=== PATIENT | male | born 1945 | race Hispanic/Latino ===

== ENCOUNTER 2018-06-20 15:30 | Inpatient (IN) | payer MEDICARE, OTHER ==
[~2018-06-20] VITALS: Ht 165.1 cm; Wt 82.2 kg
[2018-06-20 16:38] LABS: BASOPHILS % 0.4 % (0.0-1.0); EOSINOPHILS # (AUTO) 0.1 (0.0-0.4); EOSINOPHILS % 1.3 % (0.0-6.0); HEMATOCRIT 47.2 % (38.2-49.6); HEMOGLOBIN 16.6 g/dL (14.0-18.0); MEAN CORPUSCULAR HEMOGLOBIN 31.1 pg (28-32); MEAN CORPUSCULAR HGB CONC 35.2 g/dL (31-35); MEAN CORPUSCULAR VOLUME 88.4 fL (81-99); MONOCYTES # (AUTO) 0.5 (0.2-0.8); MONOCYTES % 7.6 % (4.4-11.3); NEUTROPHILS # (AUTO) 4.4 (2.1-6.9); NEUTROPHILS % 62.4 % (38.7-80.0); PLATELET COUNT 126 x10e3/uL (140-360); RED BLOOD COUNT 5.34 x10e6/uL (4.3-5.7); RED CELL DISTRIBUTION WIDTH 13.8 % (11.7-14.4)
[2018-06-20 16:49] LABS: INR 1.46; PROTHROMBIN TIME 16.7 seconds (11.9-14.5)
[2018-06-20 16:50] LABS: BILIRUBIN,URINE NEGATIVE (NEGATIVE); CLARITY,URINE SL CLOUDY (CLEAR); COLOR,URINE YELLOW (YELLOW); KETONES,URINE NEGATIVE (NEGATIVE); LEUKOCYTE ESTERASE ,URINE NEGATIVE (NEGATIVE); NITRITE,URINE NEGATIVE (NEGATIVE); PROTEIN,URINE DIPSTICK NEGATIVE (NEGATIVE); URINE UROBILINOGEN 0.2 mg/dL (0.2 - 1)
[2018-06-20 16:50] LABS: PARTIAL THROMBOPLASTIN TIME 27.4 seconds (23.8-35.5)
[2018-06-20 16:58] LABS: ALBUMIN 3.2 g/dL (3.5-5.0); ALBUMIN/GLOBULIN RATIO 0.8 (0.8-2.0); CALCIUM 9.3 mg/dL (8.4-10.2); CREATININE, SERUM 1.41 mg/dL (0.72-1.25)
[2018-06-20 16:59] LABS: BACTERIA,URINE FEW /HPF; EPITHELIAL CELLS,URINE FEW /LPF
[2018-06-20 17:05] LABS: CREATINE KINASE MB 4.1 ng/mL (0-5.0)
[2018-06-20] MEDS ORDERED: INSULIN REGULAR, HUMAN 100 UNIT/1 ML 3ML VIAL IV ONE (17:15)
[2018-06-20] MEDS ORDERED: SODIUM CHLORIDE 0.9% 1000ML 1,000 ML IV SCH (19:30)
[2018-06-20] MEDS ORDERED: SODIUM CHLORIDE 0.9% 1000ML 1,000 ML IV ONE (19:34)
[2018-06-20] MEDS ORDERED: HYDROCHLOROTHIA25 MG PO (20:42)
[2018-06-20] MEDS ORDERED: LOSARTAN POTAS100 MG PO (20:42)
[2018-06-20] MEDS ORDERED: BENAZEPRIL HCL10 MG PO (20:42)
[2018-06-20] MEDS ORDERED: AMLODIPINE BESYL5 MG PO (20:42)
[2018-06-20] MEDS ORDERED: COUMADIN3 MG PO (20:42)
[2018-06-20] MEDS ORDERED: ATORVASTATIN CA20 MG PO (20:42)
[2018-06-20] MEDS ORDERED: LEVEMIR100 UNIT/1 SQ (20:52)
[2018-06-20] MEDS ORDERED: PHYTONADIONE 10 MG/ML AMP PO ONE (21:15)
--- NOTE | 2018-06-20 21:17 | Diagnostic Imaging Report ---
PROCEDURE: A single AP view of the chest. COMPARISON: None. INDICATIONS: CHEST PAIN FINDINGS: Lines/tubes: None. Lungs: The lungs are well inflated. Minimal linear opacities projecting in the left costophrenic angle likely reflects subsegmental atelectasis. There is no evidence of consolidation or pulmonary edema. Pleura: There is no pleural effusion or pneumothorax. Heart and mediastinum: Mild prominence of the cardiac silhouette, which may be partly due to portable AP projection. Pulmonary vasculature is normal. Bones: No acute bony abnormality. IMPRESSION: 1. minimal left lower lung subsegmental atelectasis. No consolidation or effusion. 2. Mild prominence of the cardiac silhouette, which may be partly due to portable AP projection. Roscoe Taylor M.D. Dictated by: Roscoe Taylor M.D. on 06/20/2018 at 21:24 Electronically approved by: Roscoe Taylor M.D. on 06/20/2018 at 21:24
[2018-06-20] MEDS ORDERED: NOVOLOG100 UNITS1 SC (21:27)
--- NOTE | 2018-06-20 21:32 | Diagnostic Imaging Report ---
PROCEDURE: CT scan of the chest WITH intravenous contrast, using standard protocol. TECHNIQUE: The chest was scanned utilizing a multidetector helical scanner from the lung apex through the level of the adrenal glands after the IV administration of 100 cc of Isovue 370. Coronal and sagittal multiplanar reformations were obtained. COMPARISON: [facility], , CHEST SINGLE (PORTABLE), 06/20/2018, 16:45. INDICATIONS: SHORTNESS OF BREATH, LOWER EXTREMITY SWELLING FINDINGS: Limited exam due to suboptimal contrast bolus timing. Lines/tubes: None. Lungs and Airways: No filling defects are noted in the main, right or left pulmonary artery to their first subdivisions. Unable to assess segmental and subsegmental vessels secondary to poor contrast opacification due to suboptimal bolus timing. Mildly diffusely increased attenuation of the pulmonary parenchyma secondary to scan performed during partial expiration. No consolidation, or masses. No pulmonary nodules. Linear opacities in the lingula and bilateral posterior lower lobes, consistent with subsegmental atelectasis or scarring (series 3, image 73). Airways are clear, without endobronchial lesions. Pleura: The pleural spaces are clear. Heart and mediastinum: Enlarged left thyroid lobe on the basis of an approximately 4.0 x 3.1 cm heterogeneous nodule (series 2, image 19), which results in mild superior tracheal rightward deviation. Mild cardiomegaly. Atherosclerotic calcification of the coronary arteries and thoracic aorta. Aorta is non-aneurysmal. Main pulmonary artery is enlarged, measuring 3.4 cm. Lymph nodes: No mediastinal, hilar, or axillary adenopathy. Abdomen: Limited contrast-enhanced views of the upper abdomen show no abnormality within the visualized liver, spleen, pancreas, or kidneys. The adrenal glands are normal. Bones and soft tissues: No aggressive lytic lesions. Degenerative disc changes in the thoracic spine. Soft tissues are grossly unremarkable. IMPRESSION: 1. Limited exam due to suboptimal contrast bolus timing. No filling defects are noted in the main, right or left pulmonary arteries and their first subdivisions. Unable to assess segmental and subsegmental vessels. 2. Subsegmental atelectasis versus scarring in the lingula and bilateral posterior lower lobes. No consolidation, masses, or nodules. 3. Enlarged left thyroid lobe with large heterogeneous thyroid nodule. Recommend dedicated thyroid ultrasound on a nonemergent basis for further evaluation. 4. Myocardium mainly. 5. Enlarged main pulmonary artery suggesting pulmonary hypertension. Roscoe Taylor M.D. Dictated by: Roscoe Taylor M.D. on 06/20/2018 at 21:38 Electronically approved by: Roscoe Taylor M.D. on 06/20/2018 at 21:38
[2018-06-20] MEDS ORDERED: SODIUM CHLORIDE 0.9% 1000ML 500 ML IV SCH (22:00)
[2018-06-21] VITALS (8 sets, daily range): BP systolic 134–148; BP diastolic 74–90
[2018-06-21] MEDS ORDERED: FUROSEMIDE INJ 10 MG/ML 4 ML VIAL IV ONE (00:15)
[2018-06-21] MEDS ORDERED: IOPAMIDOL 370 MG/ML 200 ML INFUS..BTL INJ ONE (01:13)
[2018-06-21] MEDS ORDERED: SODIUM CHLORIDE 0.9% 50ML 50 ML ONE (01:13)
[2018-06-21] MEDS ORDERED: DEXTROSE 50% SYRINGE 50 ML IV PRN ×2 (01:15→09:15)
[2018-06-21] MEDS ORDERED: INSULIN LISPRO 100 UNIT/1 ML 3ML VIAL SQ ONE (02:45)
[2018-06-21 02:47] LABS: CREATINE KINASE MB 3.9 ng/mL (0-5.0)
[2018-06-21] MEDS ORDERED: INSULIN REGULAR, HUMAN 100 UNIT/1 ML 3ML VIAL SQ SCH (07:30)
[2018-06-21] MEDS: FUROSEMIDE INJ 10 MG/ML 4 ML VIAL IV SCH ×2 (08:47→16:31)
--- NOTE | 2018-06-21 10:13 | History and Physical ---
PRIMARY CARE PROVIDER: Kaylynn Chakraborty MD CHIEF COMPLAINT: Increasing shortness of breath and bilateral lower extremity edema. HISTORY: The patient is a 73-year-old male who came in with increasing shortness of breath and bilateral lower extremity edema and also associated with blood sugar in the 500s. The patient is only speaking Thai. His family is translating. The patient has increasing shortness of breath for the past few weeks. At baseline, he is on hydrochlorothiazide. He is also on warfarin for his atrial fibrillation, which is baseline. Heart rate on admission was 75. The patient has denied any chest pain. No abdominal pain. Increasing lower extremity swelling. PAST MEDICAL HISTORY: Atrial fibrillation with anticoagulant therapy. Dyslipidemia, hypertension, insulin-required diabetes type 2. PAST SURGICAL HISTORY: Noncontributory. MEDICATIONS: Norvasc, Lipitor, benazepril, hydrochlorothiazide, insulin NovoLog, insulin Levemir, losartan, warfarin. ALLERGIES: NO KNOWN ALLERGIES. SOCIAL HISTORY: Patient does not smoke or use alcohol. No recreational drugs. PHYSICAL EXAMINATION VITAL SIGNS: Temperature 98. Blood pressure 137/83. Pulse rate 60. Respirations 18. GENERAL: The patient is not in acute distress. He is awake. HEENT: Normocephalic, atraumatic, anicteric. No JVD. PULMONARY: Diminished breath sounds at bases with some crackles. CARDIOVASCULAR: Atrial fibrillation, rate controlled. No gross murmur. ABDOMEN: Soft, nontender, nondistended. EXTREMITIES: There is 1+ edema bilaterally. Pulses intact. NEUROLOGIC: No focal deficit. LABORATORY: Sodium is 130, potassium 4, chloride 94, bicarb 25, BUN 28, creatinine 1.4, glucose 557. WBC 7, hemoglobin 16.6, hematocrit 47, platelets 126. INR is 1.46. IMPRESSION 1. Acute, possibly chronic, diastolic dysfunction congestive heart failure associated with pulmonary hypertension as evident on CT scan of the chest that was done. There is no pulmonary embolism. No gross infiltrate, but he does have vascular congestion with pulmonary hypertension. 2. Atrial fibrillation on anticoagulant therapy chronically. 3. Dyspnea on exertion. 4. Uncontrolled diabetes, type 2, on insulin therapy. PLAN: Anticoagulant therapy. Will give the patient Lovenox in case the patient will need further cardiac workup. Consultation with Dr. Lio Barkley. Echocardiogram is done. Diurese the patient. Will give insulin sliding scale coverage and scheduled insulin and also obtain glycohemoglobin A1c. Will manage the patient's diabetes with diabetic education and diet control with ADA diet as well. The patient is admitted. ELAINA PAZ MD Job#: [id number]
[2018-06-21] MEDS: ENOXAPARIN SOD INJ 60 MG/0.6 ML SYR SC SCH ×2 (10:26→21:21)
[2018-06-21 10:36] LABS: CREATINE KINASE MB 3.2 ng/mL (0-5.0)
[2018-06-21] MEDS: INSULIN LISPRO 100 UNIT/1 ML 3ML VIAL SQ SCH ×5 (11:30→21:23)
--- NOTE | 2018-06-21 13:27 | Discharge Summary ---
NO DICTATION, LENGTH 21 SECONDS. NERISSA RAY MD Job#: [id number]
--- NOTE | 2018-06-21 13:59 | Consultation ---
DATE OF CONSULTATION: REQUESTING PHYSICIAN: Dr. Lewis. REASON FOR CONSULT: CHF. HISTORY OF PRESENTING ILLNESS: Mr. Rogers is a 73-year-old gentleman with past medical history as listed below, presented with complaints of shortness of breath. Patient apparently has been short of breath for the last 2 weeks or so. He gets short of breath at rest and on minimal exertion. He had some leg swelling. Denies any chest pain or palpitations. He reports that he went to [place] and got back last week. REVIEW OF SYMPTOMS CONSTITUTIONAL: Has some fatigue and weakness. HEENT: No headache, blurry vision, seizures, or syncope. CARDIOVASCULAR: No chest pain. Has dyspnea. Has leg edema. Has orthopnea. RESPIRATORY: No cough, fever, or expectoration. GI: No abdominal pain, vomiting, or diarrhea. : No dysuria, frequency, or incontinence. ALLERGIES: NO KNOWN DRUG ALLERGIES. MEDICATIONS: See list. PAST MEDICAL HISTORY: History of hypertension, history of diabetes mellitus, history of atrial fibrillation, history of hyperlipidemia. SOCIAL HISTORY: Does not smoke or drink. FAMILY HISTORY: Noncontributory. PHYSICAL EXAMINATION GENERAL: Moderately built, well nourished gentleman, alert and oriented, not in any obvious distress. VITAL SIGNS: Heart rate is 60, blood pressure 137/83, respiratory rate is 18. HEENT: Atraumatic. NECK: No JVD, bruits, thyromegaly, or lymphadenopathy. CARDIOVASCULAR: First and second heart sounds heard. No murmurs, rubs, or gallops appreciated. CHEST: Decreased air entry at the bases. No adventitious sounds appreciated. ABDOMEN: Soft, nontender. EXTREMITIES: Trace edema. LABORATORY DATA: Sodium is 130, potassium 4.0, chloride is 94, bicarb 25, BUN is 28, creatinine 1.4. Hemoglobin is 16.6, hematocrit 47.2, platelets 126, white count is 6.9. INR is 1.4. EKG shows atrial fibrillation at 50 beats per minute, leftward axis, normal intervals, borderline ST depressions V3 to V6. IMPRESSION 1. Congestive heart failure, [id number], diastolic. 2. Atrial fibrillation. 3. Hypertension. 4. Diabetes mellitus. 5. Hyperlipidemia. PLAN 1. IV diuresis. 2. Echocardiogram to assess LV function and valvular function. 3. Patient's heart rate is on the lower side to avoid any AV blocking agents. 4. His INR is on the lower side. He is on warfarin, can continue the same. 5. Continue with ARBs. 6. Further cardiac workup depending on clinical course. 7. I's and O's and fluid restriction. As always, I appreciate and thank you very much for this referral. Job#: [id number] VAS
[2018-06-21 19:45] LABS: CREATINE KINASE MB 2.8 ng/mL (0-5.0)
[2018-06-21] MEDS: ATORVASTATIN 20 MG TAB PO SCH (21:20)
[2018-06-21] MEDS: INSULIN DETEMIR 100 UNIT/ML PEN SQ SCH (21:22)
[2018-06-22 00:46] VITALS: BP 123/88
[2018-06-22 04:00] VITALS: BP 123/82
[2018-06-22 05:35] LABS: BASOPHILS # (AUTO) 0.1 (0.0-0.1); BASOPHILS % 0.6 % (0.0-1.0); EOSINOPHILS # (AUTO) 0.1 (0.0-0.4); EOSINOPHILS % 1.5 % (0.0-6.0); HEMATOCRIT 49.3 % (38.2-49.6); LYMPHOCYTES # (AUTO) 2.4 (1.0-3.2); LYMPHOCYTES % 27.6 % (18.0-39.1); MEAN CORPUSCULAR HEMOGLOBIN 30.7 pg (28-32); MEAN CORPUSCULAR HGB CONC 34.5 g/dL (31-35); MEAN CORPUSCULAR VOLUME 89.2 fL (81-99); MONOCYTES # (AUTO) 0.7 (0.2-0.8); MONOCYTES % 8.2 % (4.4-11.3); NEUTROPHILS # (AUTO) 5.4 (2.1-6.9); NEUTROPHILS % 61.4 % (38.7-80.0); PLATELET COUNT 131 x10e3/uL (140-360); RED BLOOD COUNT 5.53 x10e6/uL (4.3-5.7); RED CELL DISTRIBUTION WIDTH 13.9 % (11.7-14.4)
[2018-06-22 05:55] LABS: ALANINE AMINOTRANSFERASE 28 IU/L (0-55); ALBUMIN 2.9 g/dL (3.5-5.0); ALBUMIN/GLOBULIN RATIO 0.8 (0.8-2.0); ALKALINE PHOSPHATASE 76 IU/L (40-150); BLOOD UREA NITROGEN 25 mg/dL (7-26); BUN/CREATININE RATIO 21 (6-25); CALCIUM 9.3 mg/dL (8.4-10.2); CARBON DIOXIDE 29 mmol/L (22-29); CHLORIDE 99 mmol/L (98-107); CREATININE, SERUM 1.17 mg/dL (0.72-1.25); EST GLOMERULAR FILTRATION RATE > 60 ML/MIN (60-); GLUCOSE 105 mg/dL (74-118); SODIUM 139 mmol/L (136-145)
--- NOTE | 2018-06-22 06:28 | Diagnostic Imaging Report ---
CHEST SINGLE (PORTABLE), 06/22/2018 7:00 AM Technique: CHEST SINGLE (PORTABLE) Comparison: 06/20/2018. Clinical history: Congestive heart failure Findings: See Impression Impression: 1. Stable cardiomediastinal silhouette with mild cardiomegaly. 2. Unchanged lingular opacity, likely atelectasis. No edema or consolidation. 3. No effusion or pneumothorax. Signed by: Dr Kelly Baez MD on 06/22/2018 6:24 AM
[2018-06-22 07:57] LABS: INR 1.22; PROTHROMBIN TIME 14.5 seconds (11.9-14.5)
[2018-06-22 08:48] VITALS: BP 127/78
[2018-06-22] MEDS ORDERED: POTASSIUM CHLORIDE 10 MEQ TABCR PO ONE (09:00)
[2018-06-22] MEDS ORDERED: WARFARIN SOD 3 MG TAB PO SCH ×2 (09:00→17:00)
[2018-06-22] MEDS: FUROSEMIDE INJ 10 MG/ML 4 ML VIAL IV SCH ×2 (09:50→18:24)
[2018-06-22] MEDS: INSULIN LISPRO 100 UNIT/1 ML 3ML VIAL SQ SCH ×7 (09:50→21:00)
[2018-06-22] MEDS: ENOXAPARIN SOD INJ 60 MG/0.6 ML SYR SC SCH ×2 (09:50→21:10)
[2018-06-22 13:22] VITALS: BP 117/89
[2018-06-22] MEDS ORDERED: WARFARIN SOD 5 MG TAB PO SCH (17:00)
[2018-06-22 20:00] VITALS: BP 125/84
[2018-06-22] MEDS: ATORVASTATIN 20 MG TAB PO SCH (21:10)
[2018-06-22] MEDS: INSULIN DETEMIR 100 UNIT/ML PEN SQ SCH (21:10)
[2018-06-23] VITALS (7 sets, daily range): BP systolic 126–162; BP diastolic 76–93
[2018-06-23 06:09] LABS: INR 1.25; PROTHROMBIN TIME 14.8 seconds (11.9-14.5)
[2018-06-23 06:30] LABS: ANION GAP 13.6 mmol/L (8-16); BLOOD UREA NITROGEN 27 mg/dL (7-26); BUN/CREATININE RATIO 25 (6-25); CARBON DIOXIDE 27 mmol/L (22-29); CHLORIDE 102 mmol/L (98-107); CREATININE, SERUM 1.07 mg/dL (0.72-1.25); EST GLOMERULAR FILTRATION RATE > 60 ML/MIN (60-); GLUCOSE 210 mg/dL (74-118); POTASSIUM 3.6 mmol/L (3.5-5.1); SODIUM 139 mmol/L (136-145)
[2018-06-23] MEDS ORDERED: POTASSIUM CHLORIDE 10 MEQ TABCR PO ONE (07:00)
[2018-06-23] MEDS: FUROSEMIDE INJ 10 MG/ML 4 ML VIAL IV SCH ×2 (08:40→18:10)
[2018-06-23] MEDS: AMLODIPINE BESYLATE 5 MG TAB PO SCH (08:40)
[2018-06-23] MEDS: HYDROCHLOROTHIAZIDE 25 MG TAB PO SCH (08:40)
[2018-06-23] MEDS: INSULIN LISPRO 100 UNIT/1 ML 3ML VIAL SQ SCH ×7 (08:40→21:30)
[2018-06-23] MEDS ORDERED: WARFARIN SOD 3 MG TAB PO SCH ×2 (10:00→17:00)
[2018-06-23] MEDS ORDERED: WARFARIN SOD 3 MG TAB PO ONE (18:55)
[2018-06-23] MEDS: INSULIN DETEMIR 100 UNIT/ML PEN SQ SCH (21:30)
[2018-06-23] MEDS: ATORVASTATIN 20 MG TAB PO SCH (21:30)
[2018-06-24] VITALS (8 sets, daily range): BP systolic 107–153; BP diastolic 68–87
[2018-06-24 06:20] LABS: INR 1.18; PROTHROMBIN TIME 14.1 seconds (11.9-14.5)
[2018-06-24] MEDS: AMLODIPINE BESYLATE 5 MG TAB PO SCH (08:12)
[2018-06-24] MEDS: HYDROCHLOROTHIAZIDE 25 MG TAB PO SCH (08:12)
[2018-06-24] MEDS: FUROSEMIDE INJ 10 MG/ML 4 ML VIAL IV SCH ×2 (08:12→17:02)
[2018-06-24] MEDS: INSULIN LISPRO 100 UNIT/1 ML 3ML VIAL SQ SCH ×7 (08:14→21:30)
[2018-06-24] MEDS: ENOXAPARIN SOD INJ 60 MG/0.6 ML SYR SC SCH ×2 (09:34→21:29)
[2018-06-24] MEDS ORDERED: WARFARIN SOD 5 MG TAB PO NR (10:00)
[2018-06-24] MEDS: ATORVASTATIN 20 MG TAB PO SCH (21:29)
[2018-06-24] MEDS: INSULIN DETEMIR 100 UNIT/ML PEN SQ SCH (21:30)
[2018-06-25] VITALS (7 sets, daily range): BP systolic 111–131; BP diastolic 62–83
[2018-06-25 05:37] LABS: BASOPHILS # (AUTO) 0.1 (0.0-0.1); BASOPHILS % 0.7 % (0.0-1.0); EOSINOPHILS # (AUTO) 0.1 (0.0-0.4); EOSINOPHILS % 1.9 % (0.0-6.0); HEMATOCRIT 50.3 % (38.2-49.6); HEMOGLOBIN 16.9 g/dL (14.0-18.0); LYMPHOCYTES # (AUTO) 2.5 (1.0-3.2); LYMPHOCYTES % 34.4 % (18.0-39.1); MEAN CORPUSCULAR HEMOGLOBIN 30.2 pg (28-32); MEAN CORPUSCULAR HGB CONC 33.6 g/dL (31-35); MONOCYTES # (AUTO) 0.6 (0.2-0.8); MONOCYTES % 8.5 % (4.4-11.3); NEUTROPHILS # (AUTO) 3.9 (2.1-6.9); NEUTROPHILS % 54.2 % (38.7-80.0); PLATELET COUNT 133 x10e3/uL (140-360); RED BLOOD COUNT 5.59 x10e6/uL (4.3-5.7); RED CELL DISTRIBUTION WIDTH 13.9 % (11.7-14.4)
[2018-06-25 05:48] LABS: INR 1.6; PROTHROMBIN TIME 17.9 seconds (11.9-14.5)
[2018-06-25 05:56] LABS: ANION GAP 15.5 mmol/L (8-16); CALCIUM 9.7 mg/dL (8.4-10.2); CREATININE, SERUM 1.25 mg/dL (0.72-1.25); POTASSIUM 3.5 mmol/L (3.5-5.1)
[2018-06-25] MEDS: INSULIN LISPRO 100 UNIT/1 ML 3ML VIAL SQ SCH ×7 (07:30→21:45)
[2018-06-25] MEDS: FUROSEMIDE INJ 10 MG/ML 4 ML VIAL IV SCH (08:33)
[2018-06-25] MEDS: AMLODIPINE BESYLATE 5 MG TAB PO SCH (08:33)
[2018-06-25] MEDS: ENOXAPARIN SOD INJ 60 MG/0.6 ML SYR SC SCH ×2 (08:33→21:35)
[2018-06-25] MEDS ORDERED: POTASSIUM CHLORIDE 10 MEQ TABCR PO NR (11:45)
[2018-06-25] MEDS ORDERED: WARFARIN SOD 5 MG TAB PO NR (11:45)
[2018-06-25] MEDS: LOSARTAN POTASSIUM 100 MG TAB PO SCH (12:16)
[2018-06-25] MEDS: ATORVASTATIN 20 MG TAB PO SCH (21:35)
[2018-06-25] MEDS: INSULIN DETEMIR 100 UNIT/ML PEN SQ SCH (21:44)
[2018-06-26 01:00] VITALS: BP 132/80
[2018-06-26 04:50] VITALS: BP 150/85
[2018-06-26 06:06] LABS: INR 1.88; PROTHROMBIN TIME 20.3 seconds (11.9-14.5)
[2018-06-26 06:14] LABS: ANION GAP 14.5 mmol/L (8-16); CALCIUM 9.6 mg/dL (8.4-10.2); CREATININE, SERUM 1.19 mg/dL (0.72-1.25); POTASSIUM 3.5 mmol/L (3.5-5.1)
[2018-06-26] MEDS: LOSARTAN POTASSIUM 100 MG TAB PO SCH (07:55)
[2018-06-26] MEDS: AMLODIPINE BESYLATE 5 MG TAB PO SCH (07:56)
[2018-06-26] MEDS: ENOXAPARIN SOD INJ 60 MG/0.6 ML SYR SC SCH (07:56)
[2018-06-26] MEDS: INSULIN LISPRO 100 UNIT/1 ML 3ML VIAL SQ SCH ×2 (07:57→07:58)
[2018-06-26 08:00] VITALS: BP 119/65
[2018-06-26 08:29] VITALS: BP 119/65
[2018-06-26] MEDS ORDERED: POTASSIUM CHLORIDE 10 MEQ TABCR PO SCH (09:00)
[2018-06-26] MEDS ORDERED: FUROSEMIDE 40 MG TAB PO SCH (09:00)
[2018-06-26] MEDS ORDERED: LASIX40 MG PO (09:39)
[2018-06-26] MEDS ORDERED: WARFARIN SODIUM3 MG PO (09:40)
[2018-06-26] MEDS ORDERED: K DUR10 MEQ PO (09:42)
[2018-06-26] MEDS ORDERED: PROCARDIA XL30 MG (09:45)
--- NOTE | 2018-06-26 10:57 | Discharge Summary ---
PRIMARY CARE PHYSICIAN: Dr. Chakraborty DURABILITY ENGINEER: Dr. Lio Barkley FINAL DIAGNOSES: 1. [id number] diastolic dysfunction congestive heart failure. 2. Uncontrolled diabetes. Glycohemoglobin A1c of 14.2. 3. Anticoagulant therapy for baseline atrial fibrillation. SUMMARY: Patient is a 73-year-old male, came in with fluid overload, bilateral lower extremity edema, increasing shortness of breath. At baseline, he was taking hydrochlorothiazide. His blood sugar was very elevated in the 200 to 300. The patient was taking Levemir and NovoLog insulin at home, but not adequate. Patient also subtherapeutic on his INR, he was taking warfarin 3 mg once a day. Patient received IV Lasix diuresis and he did well. Echocardiogram showed ejection fraction approximately 55% to 60%. He had LVH and left atrial enlargement. He had trace aortic insufficiency, mitral regurgitation. The patient is stable now. He is going to go home today. His edema has resolved. His INR was 1.8. The patient will increase his medication. For his adjustment of medication, he was taking Levemir at 32 units, will increase that to 40 units daily. He will increase his NovoLog to 15 units before each meal. The patient will resume his Norvasc and Lipitor. He will discontinue his warfarin 3 mg, hydrochlorothiazide 25 mg, and benazepril 10 mg. He will continue with losartan and Norvasc. New prescription is warfarin 5 mg in the evening, Lasix 40 mg daily, potassium 20 mEq daily. The patient is stable and discharged home today. Will follow up with his family doctor within a week. He will need to have his blood thinner check, the latest will be Wednesday. Discussed with the patient's family. They expressed understanding. The patient is stable and discharged home today. Job#: [id number]
== END 2018-06-26 12:21 | disposition home or self-care (01) | DRG 293 ==
LOC: ER 15:30 → ERHOLD 06-21 01:53 → MED/SURG 06-21 02:50
PROVIDERS: ADMIT Internal Medicine; ATTEND Internal Medicine
DX: I11.0 Hypertensive heart disease with heart failure (principal); I50.33 Acute on chronic diastolic (congestive) heart failure; R79.1 Abnormal coagulation profile; I48.91 Unspecified atrial fibrillation; Z79.01 Long term (current) use of anticoagulants; E78.5 Hyperlipidemia, unspecified; E11.65 Type 2 diabetes mellitus with hyperglycemia; R60.0 Localized edema; Z79.4 Long term (current) use of insulin; Z86.718 Personal history of other venous thrombosis and embolism
CPT/HCPCS: 36415; 71045; 71260; 80048; 80053; 81001; 82550; 82553; 82948; 83036; 83880; 84443; 84484; 85025; 85610; 85730; 93005; 93306; 93971; 96372; 99284; J1650; J1940; J7030; Q9967

== ENCOUNTER 2018-11-08 11:28 | Inpatient (IN) | payer MEDICARE, OTHER ==
[~2018-11-08] VITALS: Ht 165.1 cm; Wt 85.4 kg
[~2018-11-08 11:28] MED LIST: AMLODIPINE BESYL5 MG PO; ATORVASTATIN CA20 MG PO; BENAZEPRIL HCL10 MG PO; COUMADIN3 MG PO; HYDROCHLOROTHIA25 MG PO; K DUR10 MEQ PO; LASIX40 MG PO; LEVEMIR100 UNIT/1 SQ; LOSARTAN POTAS100 MG PO; NOVOLOG100 UNITS1 SC; PROCARDIA XL30 MG; WARFARIN SODIUM3 MG PO
[2018-11-08] MEDS ORDERED: FUROSEMIDE INJ 10 MG/ML 4 ML VIAL IV ONE (13:00)
[2018-11-08 13:42] LABS: BASOPHILS # (AUTO) 0.1 (0.0-0.1); BASOPHILS % 0.6 % (0.0-1.0); EOSINOPHILS # (AUTO) 0.2 (0.0-0.4); EOSINOPHILS % 2.1 % (0.0-6.0); HEMATOCRIT 44.6 % (38.2-49.6); HEMOGLOBIN 15.1 g/dL (14.0-18.0); LYMPHOCYTES % 20.8 % (18.0-39.1); MEAN CORPUSCULAR HEMOGLOBIN 30.7 pg (28-32); MEAN CORPUSCULAR HGB CONC 33.9 g/dL (31-35); MEAN CORPUSCULAR VOLUME 90.7 fL (81-99); MONOCYTES # (AUTO) 0.5 (0.2-0.8); MONOCYTES % 5.3 % (4.4-11.3); NEUTROPHILS # (AUTO) 6.7 (2.1-6.9); NEUTROPHILS % 70.9 % (38.7-80.0); PLATELET COUNT 164 x10e3/uL (140-360); RED BLOOD COUNT 4.92 x10e6/uL (4.3-5.7); RED CELL DISTRIBUTION WIDTH 13.9 % (11.7-14.4)
[2018-11-08 13:45] LABS: CLARITY,URINE HAZY (CLEAR); COLOR,URINE YELLOW (YELLOW); LEUKOCYTE ESTERASE ,URINE NEGATIVE (NEGATIVE); NITRITE,URINE NEGATIVE (NEGATIVE)
[2018-11-08 13:46] LABS: BILIRUBIN,URINE NEGATIVE (NEGATIVE); KETONES,URINE NEGATIVE (NEGATIVE); PROTEIN,URINE DIPSTICK NEGATIVE (NEGATIVE); URINE UROBILINOGEN 0.2 mg/dL (0.2 - 1)
[2018-11-08 13:47] LABS: BACTERIA,URINE FEW /HPF; EPITHELIAL CELLS,URINE FEW /LPF; RBC,URINE 0-5 /HPF (0-5); WBC,URINE (MAN) 0-5 /HPF (0-5)
[2018-11-08 13:49] LABS: INR 1.38; PROTHROMBIN TIME 18.1 seconds (11.9-14.5)
[2018-11-08 13:57] LABS: ALBUMIN 2.9 g/dL (3.5-5.0); ALBUMIN/GLOBULIN RATIO 0.7 (0.8-2.0); ANION GAP 14.7 mmol/L (8-16); CHOL/HDL RATIO 2.9 (3.9-4.7); CREATININE, SERUM 1.49 mg/dL (0.72-1.25); POTASSIUM 4.7 mmol/L (3.5-5.1)
[2018-11-08] MEDS ORDERED: INSULIN REGULAR, HUMAN 100 UNIT/1 ML 3ML VIAL IV NR (14:00)
[2018-11-08 14:30] LABS: B-TYPE NATRIURETIC PEPTIDE2 224.7 pg/mL (0-100)
[2018-11-08] MEDS ORDERED: INSULIN REGULAR, HUMAN 100 UNIT/1 ML 3ML VIAL IV ONE (15:15)
[2018-11-08] MEDS ORDERED: SODIUM CHLORIDE FLUSH 10 ML SYR INJ PRN (16:00)
[2018-11-08] MEDS ORDERED: ONDANSETRON HCL INJ 2 MG/ML VIAL IV PRN (16:00)
[2018-11-08] MEDS ORDERED: DEXTROSE 50% SYRINGE 50 ML IV PRN ×2 (16:00→21:15)
[2018-11-08] MEDS: SODIUM CHLORIDE 0.9% 1000ML 1,000 ML IV SCH (16:16)
[2018-11-08] MEDS: VANCOMYCIN 1GM/NS 250 ML 250 ML IV SCH (16:16)
[2018-11-08] MEDS: HYDROCODONE/APAP 5MG-325MG TAB PO PRN (18:43)
[2018-11-08 19:47] VITALS: BP 124/70
--- NOTE | 2018-11-08 20:00 | NUR ---
RECEIVED PATIENT TO ROOM. AAOX3, BREATHING EVEN AND UNLABORED, RA. DENIES PAIN. TELE #[id number] A.FIB. IV TO R HAND 18G NS @70 ML/HR. PATIENT IS SYRIAN SPEAKING. SKIN IS PEELING ALL OVER. BLE RED, WARM, AND PEELING. RLE HAS TWO AREAS OF ESCHAR. FAMILY STATED "HE FELL IN MID OCTOBER, THOSE HAVEN'T HEALED SINCE". LLE HAS MULTIPLE SMALL WOUNDS. NO NEEDS VOICED AT THIS TIME. BED LOCKED AND IN LOWEST POSITION, CALL LIGHT WITHIN EASY REACH. BED ALARM ACTIVATED. WILL CONTINUE TO MONITOR THE PATIENT CLOSELY. SPOKE TO DR. NEWMAN. NEW ORDERS RECEIVED AND IMPLEMENTED.
[2018-11-08 20:32] VITALS: BP 124/70
[2018-11-08 20:40] VITALS: BP 124/70
[2018-11-08] MEDS: INSULIN DETEMIR 100 UNIT/ML PEN SQ SCH (21:45)
[2018-11-08] MEDS: INSULIN LISPRO 100 UNIT/1 ML 3ML VIAL SQ SCH (21:45)
[2018-11-09] VITALS (7 sets, daily range): BP systolic 113–141; BP diastolic 18–78
[2018-11-09 06:04] LABS: BASOPHILS # (AUTO) 0.1 (0.0-0.1); BASOPHILS % 0.6 % (0.0-1.0); EOSINOPHILS # (AUTO) 0.3 (0.0-0.4); EOSINOPHILS % 3.7 % (0.0-6.0); HEMATOCRIT 42.2 % (38.2-49.6); HEMOGLOBIN 14.3 g/dL (14.0-18.0); LYMPHOCYTES # (AUTO) 2.6 (1.0-3.2); LYMPHOCYTES % 30.3 % (18.0-39.1); MEAN CORPUSCULAR HEMOGLOBIN 30.5 pg (28-32); MEAN CORPUSCULAR HGB CONC 33.9 g/dL (31-35); MONOCYTES # (AUTO) 0.7 (0.2-0.8); MONOCYTES % 7.7 % (4.4-11.3); NEUTROPHILS % 57.5 % (38.7-80.0); PLATELET COUNT 176 x10e3/uL (140-360); RED BLOOD COUNT 4.69 x10e6/uL (4.3-5.7); RED CELL DISTRIBUTION WIDTH 14.1 % (11.7-14.4)
[2018-11-09 06:24] LABS: ALBUMIN 2.6 g/dL (3.5-5.0); ALBUMIN/GLOBULIN RATIO 0.8 (0.8-2.0); ANION GAP 12.7 mmol/L (8-16); CALCIUM 9.4 mg/dL (8.4-10.2); CREATININE, SERUM 1.2 mg/dL (0.72-1.25); MAGNESIUM 2.1 MG/DL (1.3-2.1); PHOSPHORUS 3.8 MG/DL (2.3-4.7); POTASSIUM 3.7 mmol/L (3.5-5.1)
[2018-11-09 06:27] LABS: INR 1.58; PROTHROMBIN TIME 20.2 seconds (11.9-14.5)
[2018-11-09] MEDS: SODIUM CHLORIDE 0.9% 1000ML 1,000 ML IV SCH ×2 (07:24→16:08)
--- NOTE | 2018-11-09 07:38 | History and Physical ---
HISTORY OF PRESENTING ILLNESS: This patient comes in with 4 weeks of pruritic lesions in the lower extremity and also generalized edema and scalding on the skin of the abdomen, perineal areas and also on the lower extremities. Patient has no history of taking any new medications except medicines that were given to him at [place] for the same reason. Patient's symptoms started about 4 weeks ago. No sudden change in environment and/or medications at the time, but patient went to a physician in [place] and was told it was from a mosquito bite. Patient was given loratadine and also hydroxyzine, but symptoms did not get any better, patient's blood sugar was running high, and the patient came here, was admitted for scalded skin syndrome. PAST MEDICAL HISTORY: History of hyperlipidemia, history of diabetes mellitus, history of hypertension, and history of DVTs and history of atrial fibrillation too. MEDICATIONS: He takes are atorvastatin 20 mg, Lasix 40 mg daily, insulin 15 units with NovoLog per each meal and Levemir 30 units in the morning and 40 units at nighttime, losartan 100 mg daily, nifedipine 30 mg daily, potassium chloride 10 mEq, and warfarin 5 mg at nighttime. SURGICAL HISTORY: Noncontributory. Did not have any surgeries. SOCIAL HISTORY: No ETOH, no IV drug abuse. FAMILY HISTORY: Positive for diabetes and hypertension. REVIEW OF SYSTEMS: Negative for chest pain. No shortness of breath. No nausea, vomiting, diarrhea. No constipation, no rectal bleeding. No hematochezia, no hematemesis. Positive for bilateral lower extremity swelling and tenderness. No orthopnea and/or no PND. No diplopia, no blurry vision. Patient is hard of hearing. PHYSICAL EXAMINATION: VITAL SIGNS: Temperature is 96.6, pulse of 57, respiration of 17, blood pressure is 114/73, pulse oximetry 97%. HEENT: Normocephalic, atraumatic. Hard of hearing. CVS: S1 and S2 regular. ABDOMEN: Nontender, nondistended. EXTREMITIES: No clubbing. Positive for bilateral lower extremity edema. SKIN AND INTEGUMENTARY SYSTEM: Positive for scalding of the skin of the perineal area and also of the groin area. Patient also has scalding in right and left upper extremity, also with lower extremities. Lower extremities with excoriations and also some pustular lesions. Patient also has bullous lesion, which is evacuated by itself, dried up skin at that place. LABORATORY VALUES: White count was 9.48, repeat today is 8.69; hemoglobin of 15.1, repeat is 14.3; hematocrit of 44.6; no left shift present. ESR was 20. Coags, 20.2 and INR is 1.58. Chemistries: Sodium 138, potassium is 4.7, chloride 102. BUN is 26; creatinine of 1.20, when he came in, it was 1.49. Glucose is 588 with current one of 191. A1c 14.6. BNP was 224.7. LDL was 44, HDL 49, triglycerides 247, and total cholesterol was 142. MICROBIOLOGY: Blood cultures are pending. Urine cultures are pending. ASSESSMENT: Hypersensitive reaction, questionable photodermatitis and/or secondary to generalized anasarca. PLAN: 1. To culture the wound in the lower extremity. Consult with Dr. Estrada has been done. Patient's sed rate is elevated, which is expected. 2. Acute kidney injury. Patient has been hydrated gently and will continue with hydration. 3. Atrial fibrillation with congestive heart failure. Will go ahead and do an echocardiogram. 4. DVT. Will continue with warfarin, up-titrate the Coumadin, put him on Lovenox 80 mg/kg b.i.d. Continue watching his cultures. Again consult with Dr. Estrada and possible consult with Dr. Richard. 5. Further recommendations per clinical course. Will continue to monitor the patient and will diurese the patient gently too. Job#: [id number]
[2018-11-09] MEDS: INSULIN LISPRO 100 UNIT/1 ML 3ML VIAL SQ SCH ×4 (08:30→21:39)
--- NOTE | 2018-11-09 08:55 | NUR ---
CASE MANAGEMENT INITIAL ASSESSMENT Fluorescent Lighting Model Maker to bedside to discuss plan of care with patient/family. CM/SW role and care transitions discussed. Anticipated discharge plan discussed along with duration of care. CM/SW discussed patients right to make decisions in care. CM/SW work hours given. Patient lives: PATIENT LIVES IN [address] [facility] [place] [address] WITH LIVE DUFF Admit/Transfer: ED POA/Emergency contact: LESLI HOWELL: [phone] Current/Previous Home Health: N/A PCP/Follow-up Care: DR. CHAKA SANABRIA Current/Previous DME: N/A Other Services: NONE AT THIS TIME Employment Status: RETIRED Areas of Concerns: NONE AT THIS TIME Referral Needs: NONE AT THIS TIME Education Needs: NONE IMM/ASIF given and signed (if applicable): IMM Goal for discharge: DISCHARGE HOME WITH NO NEEDS CM left business card at the bedside with contact information. Name and number was also written on the patients whiteboard. Patient verbalized understanding of discussion. CM will follow-up with ongoing discharge and transition of care needs.
[2018-11-09] MEDS ORDERED: GABAPENTIN 100 MG CAP PO SCH (09:00)
[2018-11-09] MEDS: VANCOMYCIN 1GM/NS 250 ML 250 ML IV SCH ×3 (09:00→21:15)
[2018-11-09] MEDS: ENOXAPARIN INJ 80 MG/0.8 ML SYR SC SCH ×2 (10:00→21:14)
--- NOTE | 2018-11-09 11:00 | NUR ---
NEW 20G TO L HAND, PT TOLERATED WELL
--- NOTE | 2018-11-09 11:17 | NUR ---
WOUND CULTURE SENT FROM LLE COLLECTED BY WOUND CARE NURSE
--- NOTE | 2018-11-09 11:35 | NUR ---
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 He has a history of DVT, HTN, AFib, DM type 2. He presented with redness and scaly skin throughout body and pruritic lesions and various bullae to bilateral lower extremities. Dr. Estrada on the case for Infectious diseases and patient is currently on IV ABX. Patient ambulates to bathroom and able to turn in bed. Spouse at bedside. Head to toe assessment performed today and noted the following wounds present on admission. VSS and Afebrile. Patient presents with crusted open bullae to left lower leg at wagner, an abrasion to right wagner from a fall at home 4 weeks ago. Redness to bilateral lower extremities and dry scaly skin throughout body. Patient has strong pedal pulses bilaterally. Education provided for daily routine hygiene/ baths to maintain skin integrity and wound care treatment plan reviewed. Patient and Spouse verbalized understanding. LABS: WBC8.69 Hgb14.3 HCT42.2 ESR20 [id number] Alb2.6 -- Trending Down Tot Protein5.9 -- Trending Down Micro: Wound Culture Performed to Left Wagner Bullae Today. RECOMMENDATION: 1. Daily Baths with Mild Soap and Water. 2. Bilateral Lower Extremities - Open Bullae - Apply Xeroform Gauze Single Layer Daily. Thank you for the consult. Addendum: 11/09/18 at 1150 by Awais Hough RN Amended: Links added.
--- NOTE | 2018-11-09 12:51 | NUR ---
SPOKE WITH MD NEWMAN, MADE AWARE OF BLOOD CULTURE BEING POSITIVE = GRAM + COCCI IN CLUSTERS, NO NEW ORDERS AT THIS TIME
--- NOTE | 2018-11-09 14:07 | NUR ---
Nutrition Screen Note RD Recommendation for Physician: -Continue 1800 ADA diet Plan of Care: RD following, monitoring for tolerance and adequacy Nutrition reason for involvement: Nutrition risk trigger- MST2 Primary Diagnose(s): Scalded skin syndrome PMH: CHF, HTN, DM2, HLD Ht: 65 in Wt: 180.3 lb BMI: 29.95 kg/m2 IBW: [address] Assessment: (11/09) 73 YOM admitted for staphylococcal scalded skin syndrome with blisters to bilateral lower legs, abdomen, and perineal areas. Pt's family at bedside translated for pt. Pt reports good appetite and po intake with no difficulties chewing or swallowing. Pt denies wt loss or GI distress. Noted wound care following, pt with blisters 2/2 to dx- no interventions at this time. Chart reviewed. Labs and meds reviewed, BG fluctuations noted- on lispro and levemir currently. Will continue to monitor. Current Diet: 1800 ADA Malnutrition Evaluation (11/09/18) The patient does not meet criteria for a specified degree of malnutrition at this time. Will re-evaluate at follow-up as appropriate. Diet Education Needs Assessment: Diet education not indicated. Nutrition Care Level: Low Signed: Kya Burgos RD, LD, [facility]
--- NOTE | 2018-11-09 17:05 | Consultation ---
DATE OF CONSULTATION: REASON FOR CONSULTATION: Cellulitis of bilateral lower extremities. This patient who is a very pleasant 73-year-old male, who has been having lesions of the lower extremities for more than 4 weeks with generalized edema. Patient was found to have redness and swelling of bilateral extremities. He came. The patient apparently was not taking any medications. He was in [place]. He took something from there without any improvement. Patient comes here. He was evaluated by his PCP and sent to the emergency room. The patient is currently laying in bed comfortably. PAST MEDICAL HISTORY: Hypercholesterolemia, diabetes mellitus, hypertension, DVT, atrial fibrillation. PAST SURGICAL HISTORY: Denies. ALLERGIES: NKA. SOCIAL HISTORY: There is no smoking, drug abuse or alcohol abuse. FAMILY HISTORY: Otherwise noncontributory. REVIEW OF SYSTEMS GENERAL: At the present time, he is laying in bed comfortably. HEENT: There is no visual changes or hearing changes. GI: There is no nausea. No vomiting. No diarrhea. CARDIAC: There is no arrhythmia. Patient was admitted and started on IV vancomycin. LABORATORY DATA: Reviewed. The blood cultures are still pending. One set is showing gram-positive cocci. White count is 9.48, hemoglobin 15.1. Sodium 130, potassium 3.7, creatinine of 1.2. PHYSICAL EXAMINATION GENERAL: He is currently alert and oriented. Does not seem to be in acute distress. VITALS: Stable. Currently afebrile. HEENT: Not icteric. NECK: Supple. CHEST: Clear. HEART: S1 and S2. No murmur. ABDOMEN: Soft. Bowel sounds are present. No tenderness. EXTREMITIES: He did have bilateral lower extremity edema. There is also erythema. IMPRESSION 1. Cellulitis of the patient's bilateral lower extremities. 2. History of deep venous thrombosis. Agree with vancomycin. I would recommend thigh-high elastic stockings. Follow vancomycin trough. Workup for DVT. Doppler was ordered. Recheck CBC. Recheck Chem panel. Obtain chest x-ray. Obtain ultrasound of the abdomen and the liver. Will follow. Job#: [id number] [place]
--- NOTE | 2018-11-09 17:17 | NUR ---
REPORT TO TUCKER ALDANA TAKING OVER CARE OF PT Addendum: 11/09/18 at 1746 by Shalini Chapa RN TUCKER SERRA
--- NOTE | 2018-11-09 17:46 | NUR ---
SPOKE WITH MD NEWMAN, CLARIFIED HOME MEDICATIONS, ORDERS NOTED
--- NOTE | 2018-11-09 17:50 | NUR ---
PT TRANSFERRED TO ROOM 200, NO CHANGE IN CONDITION, FAMILY AT SIDE
--- NOTE | 2018-11-09 19:10 | NUR ---
RECEIVED PATIENT IN BED. ALERT AND ORIENTED. IV FLUIDS ONGOING.
--- NOTE | 2018-11-09 19:23 | Diagnostic Imaging Report ---
EXAMINATION: CHEST 2 VIEWS INDICATION: ^sob ^[id number] ^[id number] COMPARISON: 06/22/2018. FINDINGS: TUBES and LINES: None. LUNGS: Mild bilateral pulmonary venous congestion. Bibasilar subsegmental atelectasis. PLEURA: No pleural effusion or pneumothorax. HEART AND MEDIASTINUM: The cardiomediastinal silhouette is mildly enlarged. BONES AND SOFT TISSUES: No acute osseous lesion. Soft tissues are unremarkable. UPPER ABDOMEN: No free air under the diaphragm. IMPRESSION: Mild bilateral pulmonary venous congestion.. Signed by: Dr. Misty Lopez M.D. on 11/09/2018 7:19 PM
[2018-11-09] MEDS ORDERED: WARFARIN SOD 3 MG TAB PO SCH (21:00)
[2018-11-09] MEDS: ATORVASTATIN 20 MG TAB PO SCH (21:14)
[2018-11-09] MEDS: GABAPENTIN 100 MG CAP PO SCH (21:14)
[2018-11-09] MEDS: INSULIN DETEMIR 100 UNIT/ML PEN SQ SCH (21:40)
[2018-11-10] VITALS (8 sets, daily range): BP systolic 121–160; BP diastolic 70–94
[2018-11-10] MEDS: HYDROCODONE/APAP 5MG-325MG TAB PO PRN ×2 (00:06→22:06)
--- NOTE | 2018-11-10 04:25 | NUR ---
Received call from telemetry that patient has a heart rate of 40bpm. Assessed patient heart rate auscultated at 52bpm. Asymptomatic, pt is alert and oriented.
[2018-11-10 04:51] LABS: BASOPHILS # (AUTO) 0.1 (0.0-0.1); BASOPHILS % 0.6 % (0.0-1.0); EOSINOPHILS # (AUTO) 0.3 (0.0-0.4); EOSINOPHILS % 3.2 % (0.0-6.0); HEMOGLOBIN 13.9 g/dL (14.0-18.0); LYMPHOCYTES # (AUTO) 2.6 (1.0-3.2); LYMPHOCYTES % 31.3 % (18.0-39.1); MEAN CORPUSCULAR HEMOGLOBIN 30.6 pg (28-32); MEAN CORPUSCULAR HGB CONC 33.1 g/dL (31-35); MEAN CORPUSCULAR VOLUME 92.5 fL (81-99); MONOCYTES # (AUTO) 0.6 (0.2-0.8); MONOCYTES % 6.8 % (4.4-11.3); NEUTROPHILS # (AUTO) 4.8 (2.1-6.9); NEUTROPHILS % 57.7 % (38.7-80.0); PLATELET COUNT 163 x10e3/uL (140-360); RED BLOOD COUNT 4.54 x10e6/uL (4.3-5.7); RED CELL DISTRIBUTION WIDTH 14.2 % (11.7-14.4)
[2018-11-10 05:02] LABS: INR 1.56
[2018-11-10 05:09] LABS: ANION GAP 10.8 mmol/L (8-16); BLOOD UREA NITROGEN 21 mg/dL (7-26); BUN/CREATININE RATIO 23 (6-25); CALCIUM 8.4 mg/dL (8.4-10.2); CARBON DIOXIDE 24 mmol/L (22-29); CHLORIDE 106 mmol/L (98-107); EST GLOMERULAR FILTRATION RATE > 60 ML/MIN (60-); GLUCOSE 154 mg/dL (74-118); POTASSIUM 3.8 mmol/L (3.5-5.1); SODIUM 137 mmol/L (136-145)
--- NOTE | 2018-11-10 07:20 | NUR ---
rEPORT GIVEN TO ONCOMING NURSE.
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
--- NOTE | 2018-11-10 08:09 | Diagnostic Imaging Report ---
EXAM: US ABDOMEN COMPLETE DATE: 11/10/2018 7:00 AM INDICATION: Pain COMPARISON: None TECHNIQUE: Transverse and longitudinal wilson scale and color doppler sonographic images of the upper abdomen were obtained. FINDINGS: LIVER 13.8 cm in the right midclavicular line. Normal echogenicity, normal contour, no masses. SPLEEN 7 cm in maximum diameter. Normal echogenicity, no masses. GALLBLADDER No stones, sludge, wall-thickening or pericholecystic fluid. Negative sonographic Layne's sign. BILE DUCTS No intra nor extra-hepatic biliary dilation. Common bile duct measures 0.3 cm PANCREAS: Visualized portions are normal. RIGHT KIDNEY: 10.8 cm Echogenicity: Normal Collecting System: No hydronephrosis Stones: None Cyst/Mass: None LEFT KIDNEY: 10.8 cm Echogenicity: Normal Collecting System: No hydronephrosis Stones: None Cyst/Mass: None VESSELS: Aorta: Nonaneurysmal Inferior Vena Cava: Patent Main Portal Vein: 0.7 cm, normal size with hepatopetal flow. FREE FLUID: None IMPRESSION: Unremarkable abdominal ultrasound. Signed by: Dr. Napoleon Rai M.D. on 11/10/2018 8:06 AM
[2018-11-10] MEDS: INSULIN LISPRO 100 UNIT/1 ML 3ML VIAL SQ SCH ×7 (09:00→21:00)
[2018-11-10] MEDS: FUROSEMIDE 40 MG TAB PO SCH (09:01)
[2018-11-10] MEDS: LOSARTAN POTASSIUM 100 MG TAB PO SCH (09:01)
[2018-11-10] MEDS: GABAPENTIN 100 MG CAP PO SCH ×2 (09:01→22:05)
[2018-11-10] MEDS: NIFEDIPINE CR 30 MG TAB PO SCH (09:01)
[2018-11-10] MEDS: POTASSIUM CHLORIDE 10MEQ EA PO SCH (09:01)
[2018-11-10] MEDS: ENOXAPARIN INJ 80 MG/0.8 ML SYR SC SCH ×2 (09:02→22:05)
[2018-11-10] MEDS: VANCOMYCIN 1GM/NS 250 ML 250 ML IV SCH ×2 (09:58→22:05)
[2018-11-10] MEDS: SODIUM CHLORIDE 0.9% 1000ML 1,000 ML IV SCH (10:00)
[2018-11-10] MEDS ORDERED: WARFARIN SOD 5 MG TAB PO SCH (17:00)
[2018-11-10] MEDS: INSULIN DETEMIR 100 UNIT/ML PEN SQ SCH (21:00)
[2018-11-10] MEDS: ATORVASTATIN 20 MG TAB PO SCH (22:05)
[2018-11-11] VITALS (7 sets, daily range): BP systolic 114–142; BP diastolic 63–89
[2018-11-11] MEDS: HYDROCODONE/APAP 5MG-325MG TAB PO PRN ×2 (03:20→21:15)
[2018-11-11] MEDS: SODIUM CHLORIDE 0.9% 1000ML 1,000 ML IV SCH ×3 (03:51→20:30)
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
[2018-11-11] MEDS: FUROSEMIDE 40 MG TAB PO SCH (08:26)
[2018-11-11] MEDS: INSULIN LISPRO 100 UNIT/1 ML 3ML VIAL SQ SCH ×8 (08:26→21:00)
[2018-11-11] MEDS: GABAPENTIN 100 MG CAP PO SCH ×2 (08:26→21:14)
[2018-11-11] MEDS: VANCOMYCIN 1GM/NS 250 ML 250 ML IV SCH ×2 (08:26→20:30)
[2018-11-11] MEDS: LOSARTAN POTASSIUM 100 MG TAB PO SCH (08:26)
[2018-11-11] MEDS: NIFEDIPINE CR 30 MG TAB PO SCH (08:26)
[2018-11-11] MEDS: ENOXAPARIN INJ 80 MG/0.8 ML SYR SC SCH ×2 (08:26→21:14)
[2018-11-11] MEDS: POTASSIUM CHLORIDE 10MEQ EA PO SCH (08:26)
[2018-11-11] MEDS ORDERED: WARFARIN SOD 5 MG TAB PO SCH (17:00)
[2018-11-11] MEDS: WARFARIN SOD 3 MG TAB PO SCH (17:17)
[2018-11-11] MEDS: WARFARIN SOD 2.5 MG TAB PO SCH (17:17)
[2018-11-11] MEDS: INSULIN DETEMIR 100 UNIT/ML PEN SQ SCH (21:00)
[2018-11-11] MEDS: ATORVASTATIN 20 MG TAB PO SCH (21:14)
[2018-11-12] VITALS (7 sets, daily range): BP systolic 98–164; BP diastolic 63–89
[2018-11-12] MEDS: HYDROCODONE/APAP 5MG-325MG TAB PO PRN ×3 (07:13→20:47)
[2018-11-12] MEDS: INSULIN LISPRO 100 UNIT/1 ML 3ML VIAL SQ SCH ×7 (07:45→20:29)
[2018-11-12] MEDS: NIFEDIPINE CR 30 MG TAB PO SCH (08:33)
[2018-11-12] MEDS: ENOXAPARIN INJ 80 MG/0.8 ML SYR SC SCH ×2 (08:33→20:47)
[2018-11-12] MEDS: LOSARTAN POTASSIUM 100 MG TAB PO SCH (08:33)
[2018-11-12] MEDS: GABAPENTIN 100 MG CAP PO SCH ×2 (08:33→20:47)
[2018-11-12] MEDS: POTASSIUM CHLORIDE 10MEQ EA PO SCH (08:33)
[2018-11-12] MEDS: FUROSEMIDE 40 MG TAB PO SCH (08:33)
[2018-11-12] MEDS: SODIUM CHLORIDE 0.9% 1000ML 1,000 ML IV SCH (11:11)
[2018-11-12] MEDS: WARFARIN SOD 2.5 MG TAB PO SCH (17:47)
[2018-11-12] MEDS: VANCOMYCIN 1GM/NS 250 ML 250 ML IV SCH (17:48)
[2018-11-12] MEDS: WARFARIN SOD 3 MG TAB PO SCH (17:48)
[2018-11-12 18:26] LABS: INR 1.63; PROTHROMBIN TIME 20.7 seconds (11.9-14.5)
[2018-11-12] MEDS: INSULIN DETEMIR 100 UNIT/ML PEN SQ SCH (20:29)
[2018-11-12] MEDS: ATORVASTATIN 20 MG TAB PO SCH (20:47)
[2018-11-13] VITALS (8 sets, daily range): BP systolic 124–157; BP diastolic 64–83
[2018-11-13] MEDS: SODIUM CHLORIDE 0.9% 1000ML 1,000 ML IV SCH ×2 (04:42→20:53)
[2018-11-13 04:50] LABS: INR 1.35; PROTHROMBIN TIME 17.8 seconds (11.9-14.5)
[2018-11-13] MEDS: HYDROCODONE/APAP 5MG-325MG TAB PO PRN ×3 (08:01→19:50)
[2018-11-13] MEDS: INSULIN LISPRO 100 UNIT/1 ML 3ML VIAL SQ SCH ×7 (08:02→21:00)
[2018-11-13] MEDS: NIFEDIPINE CR 30 MG TAB PO SCH (09:13)
[2018-11-13] MEDS: LOSARTAN POTASSIUM 100 MG TAB PO SCH (09:13)
[2018-11-13] MEDS: GABAPENTIN 100 MG CAP PO SCH ×2 (09:13→21:27)
[2018-11-13] MEDS: POTASSIUM CHLORIDE 10MEQ EA PO SCH (09:13)
[2018-11-13] MEDS: FUROSEMIDE 40 MG TAB PO SCH (09:13)
[2018-11-13] MEDS: ENOXAPARIN INJ 80 MG/0.8 ML SYR SC SCH ×2 (09:13→21:27)
[2018-11-13] MEDS: VANCOMYCIN 1GM/NS 250 ML 250 ML IV SCH (16:52)
[2018-11-13] MEDS: WARFARIN SOD 5 MG TAB PO SCH (16:52)
[2018-11-13] MEDS: WARFARIN SOD 2 MG TAB PO SCH (16:52)
[2018-11-13] MEDS ORDERED: WARFARIN SOD 5 MG TAB PO SCH (17:00)
--- NOTE | 2018-11-13 19:15 | NUR ---
Received patient awake with family members at the bedside, with ongoing IV fluids, generalized peeling noted on the LUE, abdomen and BLE. Call light within easy reached, advised to call for assistance, bed alarm on. Will continue to monitor
--- NOTE | 2018-11-13 20:10 | NUR ---
Wound care done to left wagner per MD order, patient tolerated the procedure well
[2018-11-13] MEDS: INSULIN DETEMIR 100 UNIT/ML PEN SQ SCH (21:00)
[2018-11-13] MEDS: ATORVASTATIN 20 MG TAB PO SCH (21:27)
[2018-11-14] VITALS (7 sets, daily range): BP systolic 121–144; BP diastolic 67–84
[2018-11-14 04:52] LABS: INR 1.47; PROTHROMBIN TIME 19.1 seconds (11.9-14.5)
[2018-11-14] MEDS: HYDROCODONE/APAP 5MG-325MG TAB PO PRN ×2 (05:42→14:44)
[2018-11-14] MEDS: LOSARTAN POTASSIUM 100 MG TAB PO SCH (08:30)
[2018-11-14] MEDS: ENOXAPARIN INJ 80 MG/0.8 ML SYR SC SCH ×2 (08:31→21:44)
[2018-11-14] MEDS: POTASSIUM CHLORIDE 10MEQ EA PO SCH (08:31)
[2018-11-14] MEDS: GABAPENTIN 100 MG CAP PO SCH ×2 (08:31→21:44)
[2018-11-14] MEDS: FUROSEMIDE 40 MG TAB PO SCH (08:31)
[2018-11-14] MEDS: INSULIN LISPRO 100 UNIT/1 ML 3ML VIAL SQ SCH ×7 (08:34→22:59)
[2018-11-14] MEDS: NIFEDIPINE CR 30 MG TAB PO SCH (09:00)
--- NOTE | 2018-11-14 09:23 | NUR ---
ALIDA CALLED DR. NEWMAN REGARDING PATIENT PLAN OF CARE. DR. NEWMAN STATES HE WANTS TO SEE PATIENT PRIOR TO MAKING DECISION FOR DISCHARGE PLAN. CM ASKED MD FOR PT EVAL FOR PRELIMINARY DISCHARGE RECOMMENDATIONS. MD VERBALLY AGREED TO ORDERING PT EVALUATION. CM PLACED ORDER AND CALLED PHYSICAL THERAPY TO SEE PATIENT.
[2018-11-14] MEDS: SODIUM CHLORIDE 0.9% 1000ML 1,000 ML IV SCH (13:00)
[2018-11-14] MEDS: VANCOMYCIN 1GM/NS 250 ML 250 ML IV SCH (17:13)
[2018-11-14] MEDS: WARFARIN SOD 5 MG TAB PO SCH (17:13)
[2018-11-14] MEDS: WARFARIN SOD 2 MG TAB PO SCH (17:14)
--- NOTE | 2018-11-14 19:00 | NUR ---
Completed bedside rounds with morning nurse. Pt alert to name, lying in bed 60 degrees. Family at bedside. No distress noted.
[2018-11-14] MEDS: INSULIN DETEMIR 100 UNIT/ML PEN SQ SCH (21:00)
[2018-11-14] MEDS: ATORVASTATIN 20 MG TAB PO SCH (21:44)
--- NOTE | 2018-11-14 22:12 | Progress Note ---
DATE: SUBJECTIVE: This 73-year-old man comes in with cellulitis of lower extremity and also scarring of the skin. The patient is currently doing okay, getting local wound care and afebrile. Complains of pain in the lower extremities. Medications right now are warfarin 5 mg and 2 mg; vancomycin daily; insulin 15 units, Lispro and Humalog; and also getting hydrocodone for pain. The patient is also on gabapentin, Lovenox q.12 h., atorvastatin 20 mg and also Levemir 40 units. OBJECTIVE VITAL SIGNS: Temperature is 96.7, pulse is 51, respirations of 18, blood pressure is 137/71. HEENT: Normocephalic, atraumatic. Pupils are reactive to light and accommodation. CVS: S1 and S2, irregular. ABDOMEN: Nontender, nondistended. EXTREMITIES: No clubbing, no cyanosis. Positive for edema. Positive for excoriation and erythematous ulcer in the left lower extremity. Positive for scarring of the skin which is better in perineal area. LABORATORY VALUES: White count has not been done. It was of back on 11/10, was 8.25 and hemoglobin was 13.9 and 42.0 hematocrit. Chemistries were also not done. Vancomycin trough done on the was 9.0. His coags have been 1.479 today. MICROBIOLOGY: The patient grew Enterococcus faecalis, Enterococcus cloacae and Proteus mirabilis in the wound culture. The patient is sensitive to vancomycin for both. The patient is currently on vancomycin. ASSESSMENT 1. Cellulitis of the lower extremities: Plan is to continue with vancomycin, although the culture has been sensitive to Levaquin. We will discuss with ID tomorrow whether the patient can be discharged home on Levaquin. 2. Bacteremia: Continue with monitoring the patient. So far, the blood cultures have been negative. 3. Acute on chronic systolic heart failure: Continue diuresis. 4. Atrial fibrillation: Increase warfarin today and follow through his INR. The patient needs IV antibiotic or p.o. antibiotics on an outpatient basis. Will discuss with ID on it. Repeat his labs tomorrow. Job#: [id number] YVES
[2018-11-15] VITALS: BP 164/78
[2018-11-15 04:00] VITALS: BP 156/88
[2018-11-15 04:48] LABS: BASOPHILS # (AUTO) 0.1 (0.0-0.1); BASOPHILS % 0.8 % (0.0-1.0); EOSINOPHILS # (AUTO) 0.3 (0.0-0.4); EOSINOPHILS % 3.7 % (0.0-6.0); HEMATOCRIT 39.3 % (38.2-49.6); HEMOGLOBIN 12.6 g/dL (14.0-18.0); LYMPHOCYTES # (AUTO) 2.4 (1.0-3.2); LYMPHOCYTES % 31.1 % (18.0-39.1); MEAN CORPUSCULAR HGB CONC 32.1 g/dL (31-35); MEAN CORPUSCULAR VOLUME 93.6 fL (81-99); MONOCYTES # (AUTO) 0.8 (0.2-0.8); MONOCYTES % 10.9 % (4.4-11.3); NEUTROPHILS % 53.2 % (38.7-80.0); PLATELET COUNT 150 x10e3/uL (140-360); RED CELL DISTRIBUTION WIDTH 14.8 % (11.7-14.4)
[2018-11-15 05:11] LABS: ANION GAP 11.7 mmol/L (8-16); BLOOD UREA NITROGEN 15 mg/dL (7-26); BUN/CREATININE RATIO 19 (6-25); CALCIUM 8.2 mg/dL (8.4-10.2); CARBON DIOXIDE 23 mmol/L (22-29); CHLORIDE 108 mmol/L (98-107); CREATININE, SERUM 0.81 mg/dL (0.72-1.25); EST GLOMERULAR FILTRATION RATE > 60 ML/MIN (60-); GLUCOSE 75 mg/dL (74-118); POTASSIUM 3.7 mmol/L (3.5-5.1); SODIUM 139 mmol/L (136-145)
[2018-11-15] MEDS: SODIUM CHLORIDE 0.9% 1000ML 1,000 ML IV SCH (05:19)
[2018-11-15] MEDS: HYDROCODONE/APAP 5MG-325MG TAB PO PRN ×3 (05:19→17:24)
--- NOTE | 2018-11-15 07:40 | Progress Note ---
DATE: SUBJECTIVE: The patient is here for cellulitis of the lower extremity and also history of atrial fibrillation. The patient is currently afebrile, no complaints. The patient's medications are Atorvastatin 20 mg, Lovenox for bridging, Lasix 40 mg. The patient is also on gabapentin, hydrocodone for pain control, detemir Levemir, and nifedipine. The patient is also on vancomycin and warfarin. OBJECTIVE VITAL SIGNS: Temperature is 96.8, pulse 53, respirations of 18, blood pressure is 156/88, and pulse oximeter is 95%. HEENT: Normocephalic, atraumatic. Pupils are reactive to light and accommodation. CVS: S1 and S2, irregular. ABDOMEN: Nontender, nondistended. EXTREMITIES: Positive for increased erythema. Positive for ulcers in the left lower extremity. It is bandaged. Skin in the perineal area is better and peeling and looks healthier. LABORATORY VALUES: Today's white count is 7.59, hemoglobin 12.6, hematocrit 39.3. Sed rate 20.19. Chemistries: Sodium 139, potassium 3.7, chloride 108, BUN 15, creatinine 0.81, glucose 75. Toxicology: Creatinine trough was 9 yesterday. Urine has been negative so far. MICROBIOLOGY: Enterococcus and Gram stain on the wound culture and Enterobacter cloacae and Proteus mirabilis. Blood culture showed coagulase-negative staphylococcus, possibly skin contaminant. Urine culture was negative. ASSESSMENT 1. Bacteremia initially. 2. Cellulitis of bilateral lower extremities sensitive to floxins. The plan is to continue with the vancomycin. ID consult is on board. We will discuss with ID if the patient can be discharged home on Levaquin p.o. and/or need a PICC line for continuous vancomycin. Further recommendations per the clinical course. 3. The patient also has atrial fibrillation. Anticoagulation is on board. The patient's laboratory coags today were 19.1 and 1.47. We will go ahead and increase his warfarin today. Further recommendations per the clinical course. The patient is to be discharged and to be followed up by the primary care physician and also to monitor his INR Job#: [id number]
[2018-11-15 08:00] VITALS: BP 149/76
[2018-11-15] MEDS: INSULIN LISPRO 100 UNIT/1 ML 3ML VIAL SQ SCH ×6 (08:00→16:30)
[2018-11-15 08:56] VITALS: BP 149/76
[2018-11-15] MEDS: NIFEDIPINE CR 30 MG TAB PO SCH (09:00)
[2018-11-15] MEDS: LOSARTAN POTASSIUM 100 MG TAB PO SCH (09:00)
[2018-11-15] MEDS: FUROSEMIDE 40 MG TAB PO SCH (09:00)
[2018-11-15] MEDS: POTASSIUM CHLORIDE 10MEQ EA PO SCH (09:00)
[2018-11-15] MEDS: GABAPENTIN 100 MG CAP PO SCH (09:00)
[2018-11-15] MEDS: ENOXAPARIN INJ 80 MG/0.8 ML SYR SC SCH (09:00)
[2018-11-15 12:07] VITALS: BP 146/78
[2018-11-15 16:00] VITALS: BP 139/79
[2018-11-15] MEDS ORDERED: DOXYCYCLINE HY100 MG PO (17:02)
[2018-11-15] MEDS: WARFARIN SOD 5 MG TAB PO SCH (17:28)
[2018-11-15] MEDS: WARFARIN SOD 2 MG TAB PO SCH (17:28)
[2018-11-15] MEDS: VANCOMYCIN 1GM/NS 250 ML 250 ML IV SCH (17:28)
== END 2018-11-15 20:34 | disposition home health service (06) | DRG 602 ==
LOC: ER 11:28 → ERHOLD 15:56 → MED/SURG 19:50 → MED/SURG2 11-09 17:53
PROVIDERS: ADMIT Family Medicine; ATTEND Family Medicine
DX: L03.115 Cellulitis of right lower limb (principal); I50.43 Acute on chronic combined systolic (congestive) and diastolic (congestive) heart failure; N17.9 Acute kidney failure, unspecified; I48.2 Chronic atrial fibrillation; L03.116 Cellulitis of left lower limb; Z79.01 Long term (current) use of anticoagulants; Z86.718 Personal history of other venous thrombosis and embolism; I11.0 Hypertensive heart disease with heart failure; E11.9 Type 2 diabetes mellitus without complications; G89.29 Other chronic pain; E11.40 Type 2 diabetes mellitus with diabetic neuropathy, unspecified; Z79.4 Long term (current) use of insulin; B96.4 Proteus (mirabilis) (morganii) as the cause of diseases classified elsewhere; B95.2 Enterococcus as the cause of diseases classified elsewhere; B96.89 Other specified bacterial agents as the cause of diseases classified elsewhere
CPT/HCPCS: 36415; 71046; 76700; 80048; 80053; 80061; 80202; 81001; 82948; 83036; 83735; 83880; 84100; 84484; 85025; 85610; 85651; 85730; 87040; 87071; 87086; 87186; 87205; 93306; 93970; 96361; 96372; 99285; J1650; J1940; J3370; J7030

== ENCOUNTER 2019-11-30 18:26 | Emergency (ER) | payer MEDICARE, OTHER ==
[~2019-11-30] VITALS: Ht 165.1 cm; Wt 84.4 kg
[~2019-11-30 18:26] MED LIST changes: +DOXYCYCLINE HY100 MG PO
[2019-11-30] MEDS ORDERED: ONDANSETRON HCL INJ 2MG/ML 2ML 2 MG/ML VIAL IV STA (18:52)
[2019-11-30] MEDS ORDERED: SODIUM CHLORIDE 0.9% 1000ML 1,000 ML IV STA (18:52)
[2019-11-30] MEDS ORDERED: CEFTRIAXONE SOD 1 GM/NS 50 ML 50 ML IV STA (18:52)
--- NOTE | 2019-11-30 19:21 | NUR ---
PT GAVE WATER IN URINE CUP, COLD TOO TOUCH. CLEAR. DISCARDED.
--- NOTE | 2019-11-30 19:59 | Diagnostic Imaging Report ---
Examination: Single AP view of the chest. COMPARISON: None. INDICATION: nausea, vomiting DISCUSSION: Lines/tubes: None. Lungs: The lungs are well inflated and clear. No pneumonia or pulmonary edema. Pleura: No pleural effusion or pneumothorax. Heart and mediastinum: The heart and the mediastinum are unremarkable. Bones and soft tissues: No acute bony abnormalities. IMPRESSION: 1. No acute cardiopulmonary abnormalities. Signed by: Dr. Hammad Cano M.D. on 11/30/2019 7:56 PM
[2019-11-30 21:17] LABS: BASOPHILS % 0.1 % (0.0-1.0); EOSINOPHILS # (AUTO) 0.1 (0.0-0.4); EOSINOPHILS % 0.3 % (0.0-6.0); HEMATOCRIT 42.4 % (38.2-49.6); HEMOGLOBIN 14.2 g/dL (14.0-18.0); LYMPHOCYTES # (AUTO) 1.6 (1.0-3.2); LYMPHOCYTES % 7.6 % (18.0-39.1); MEAN CORPUSCULAR HGB CONC 33.5 g/dL (31-35); MEAN CORPUSCULAR VOLUME 89.5 fL (81-99); MONOCYTES # (AUTO) 1.1 (0.2-0.8); MONOCYTES % 4.9 % (4.4-11.3); NEUTROPHILS # (AUTO) 18.5 (2.1-6.9); NEUTROPHILS % 85.7 % (38.7-80.0); PLATELET COUNT 130 x10e3/uL (140-360); RED BLOOD COUNT 4.74 x10e6/uL (4.3-5.7); RED CELL DISTRIBUTION WIDTH 13.1 % (11.7-14.4)
[2019-11-30 21:24] LABS: INR 3.15; PROTHROMBIN TIME 33.8 seconds (11.9-14.5)
[2019-11-30 21:25] LABS: PARTIAL THROMBOPLASTIN TIME 54.7 seconds (23.8-35.5)
[2019-11-30 21:32] LABS: ALBUMIN 3.2 g/dL (3.5-5.0); ALBUMIN/GLOBULIN RATIO 0.9 (0.8-2.0); ANION GAP 17.5 mmol/L (8-16); CREATININE, SERUM 1.58 mg/dL (0.72-1.25); POTASSIUM 4.5 mmol/L (3.5-5.1)
[2019-11-30 21:38] LABS: CREATINE KINASE MB 1.3 ng/mL (0-5.0)
[2019-11-30 21:46] LABS: B-TYPE NATRIURETIC PEPTIDE2 295.2 pg/mL (0-100)
[2019-11-30] MEDS ORDERED: INSULIN REGULAR, HUMAN 100 UNIT/1 ML 3ML VIAL IV ONE (22:15)
--- NOTE | 2019-11-30 23:46 | Diagnostic Imaging Report ---
CT Abdomen And Pelvis with Intravenous Contrast INDICATION: Nausea, vomiting, fever, hematuria ^abd pain ^[id number] ^3 TECHNIQUE: Thin collimation axial images obtained from the diaphragm to the level of the pubic symphysis following the uneventful administration of 100 cc of low osmolar, nonionic intravenous contrast. Dose reduction techniques used: Automated exposure control, adjustment of the mAs and/or kVp according to patient size, standardized low-dose protocol, and/or iterative reconstruction technique. RADIATION DOSE: Total DLP: 517.27 mGy*cm Estimated effective dose: (DLP x 0.015 x size factor) mSv CTDIvol has been reviewed. It is below the limits set by the Radiation Protocol Committee (RPC). COMPARISON: CT abdomen/pelvis 10/27/2019. ABDOMEN FINDINGS: Lung Bases: Pleural effusions have resolved. A small focus of atelectasis or scarring in the anterior basal segment of the left lower lobe. The heart is mildly enlarged. There are calcifications in the LAD. Liver: No evidence of mass. Gallbladder: Present and appears normal. No biliary ductal dilatation. Pancreas: Mild fatty atrophy. No mass or ductal dilatation. Spleen: Normal in size. No evidence of mass.. Adrenal Glands: No evidence for mass. Kidneys: Right: Normal enhancement. No soft tissue mass. No hydronephrosis. Left: Normal enhancement. No soft tissue mass. No hydronephrosis. Lymph Nodes: No lymphadenopathy. Aorta: Normal in diameter. There are calcifications of the renal artery origins and calcifications throughout the arterial structures of the abdomen and pelvis. PELVIS FINDINGS: Bowel: Stomach: Normal. Small Bowel: Normal in caliber with normal wall thickness. Large Bowel: Scattered diverticula without associated inflammation. No focal mural thickening or pericolonic inflammation. Appendix: Normal. Bladder: Diffuse circumferential mural thickening. Ureters: No ureteral dilatation. Prostate: Enlarged. Peritoneum/retroperitoneum: No free fluid or fluid collection.. Bones: Degenerative changes of the spine. The lucent lesion in the right iliac wing is stable. Soft tissues: Unremarkable. IMPRESSION: 1. Circumferential bladder wall thickening may be secondary to bladder outlet obstruction from prostate hypertrophy or cystitis. Please correlate with urinalysis/urine culture. 2. No obstructive uropathy. No CT evidence of pyelonephritis. 3. No evidence for bowel obstruction or inflammation. Signed by: Dr. Frank Cordova MD on 11/30/2019 11:43 PM
[2019-12-01 00:05] LABS: CLARITY,URINE CLOUDY (CLEAR); COLOR,URINE AMBER (YELLOW); NITRITE,URINE NEGATIVE (NEGATIVE); PROTEIN,URINE DIPSTICK 1+ (NEGATIVE)
[2019-12-01 00:06] LABS: BACTERIA,URINE MANY /HPF; BILIRUBIN,URINE SMALL (NEGATIVE); EPITHELIAL CELLS,URINE FEW /LPF; KETONES,URINE TRACE (NEGATIVE); LEUKOCYTE ESTERASE ,URINE 2+ (NEGATIVE); RBC,URINE 21-50 /HPF (0-5); RENAL EPITHELIAL CELLS,URINE FEW; TRANSITIONAL EPI CELLS,URINE FEW; URINE UROBILINOGEN 1 mg/dL (0.2 - 1); WBC,URINE (MAN) >50 /HPF (0-5)
[2019-12-01] MEDS ORDERED: INSULIN GLARGINE 100 UNITS/ML VIAL ONE (02:13)
[2019-12-01] MEDS ORDERED: INSULIN GLARGINE 100 UNITS/ML VIAL SQ ONE (03:15)
[2019-12-01] MEDS ORDERED: SODIUM CHLORIDE 0.9% 50ML 50 ML ONE (03:22)
[2019-12-01] MEDS ORDERED: IOPAMIDOL 370 MG/ML 200 ML INFUS..BTL INJ ONE (03:22)
[2019-12-01 05:29] LABS: BASOPHILS % 0.2 % (0.0-1.0); EOSINOPHILS % 0.2 % (0.0-6.0); HEMATOCRIT 36.6 % (38.2-49.6); HEMOGLOBIN 12.4 g/dL (14.0-18.0); LYMPHOCYTES # (AUTO) 2.1 (1.0-3.2); LYMPHOCYTES % 11.2 % (18.0-39.1); MEAN CORPUSCULAR HEMOGLOBIN 30.3 pg (28-32); MEAN CORPUSCULAR HGB CONC 33.9 g/dL (31-35); MEAN CORPUSCULAR VOLUME 89.5 fL (81-99); MONOCYTES # (AUTO) 1.5 (0.2-0.8); NEUTROPHILS # (AUTO) 15.1 (2.1-6.9); NEUTROPHILS % 79.9 % (38.7-80.0); PLATELET COUNT 116 x10e3/uL (140-360); RED BLOOD COUNT 4.09 x10e6/uL (4.3-5.7)
[2019-12-01 05:47] LABS: ALBUMIN 2.8 g/dL (3.5-5.0); ALBUMIN/GLOBULIN RATIO 0.8 (0.8-2.0); ANION GAP 13.8 mmol/L (8-16); CALCIUM 8.7 mg/dL (8.4-10.2); CREATININE, SERUM 1.27 mg/dL (0.72-1.25); POTASSIUM 3.8 mmol/L (3.5-5.1)
[2019-12-01] MEDS ORDERED: BACTRIM DS TAB1 EACH PO (07:04)
[2019-12-01] MEDS ORDERED: KEFLEX500 MG PO (07:04)
[2019-12-01 07:27] VITALS: BP 123/65
[2019-12-01] MEDS ORDERED: CEFTRIAXONE SOD 1 GM/NS 50 ML 50 ML IV ONE (07:30)
== END 2019-12-01 07:39 | disposition home or self-care (01) ==
LOC: ER 18:26
DX: R30.0 Dysuria (principal); R31.9 Hematuria, unspecified; R11.2 Nausea with vomiting, unspecified; R10.9 Unspecified abdominal pain; I10 Essential (primary) hypertension; E11.9 Type 2 diabetes mellitus without complications; E78.5 Hyperlipidemia, unspecified; Z86.711 Personal history of pulmonary embolism
CPT/HCPCS: 36415; 71045; 74177; 80053; 81001; 82550; 82553; 82948; 83605; 83880; 84484; 85025; 85610; 85730; 87040; 87086; 93005; 99284; J0696 ×2; J1815; J1817; J2405; J7030; Q9967

== ENCOUNTER 2020-05-06 13:55 | Inpatient (IN) | payer MEDICARE, OTHER ==
[~2020-05-06] VITALS: Ht 160 cm; Wt 84.4 kg
[~2020-05-06 13:55] MED LIST changes: +BACTRIM DS TAB1 EACH PO; +KEFLEX500 MG PO
[2020-05-06] MEDS ORDERED: CEFEPIME 1GM/NS 0.9% 50 ML 50 ML IV STA (15:12)
[2020-05-06] MEDS ORDERED: VANCOMYCIN 1GM/NS 250 ML 250 ML IV STA (15:28)
--- NOTE | 2020-05-06 15:31 | Emergency Department Note ---
History of Present Illnes History of Present Illness Chief Complaint: Extremity Trauma/Pain History of Present Illness This is a 75 year old male arrived to the ED with complaints right great toe infection, pt is a diabetic who states he stubbed his toe last week. Chief Complaint Comment Pt arrived with c/o Right great toe infection. Pt states he stubbed his toe approx 3 days ago and now swollen and redness noted with yellow drainage. Sent to the ER by his PCP for further eval. Historian: Patient Arrival Mode: Car Onset (how long ago): day(s) Radiation: Reports non-radiation Severity: mild Onset quality: sudden Progression: worsening Chronicity: new Relieving factors: none Past Medical/Family History Physician Review I have reviewed the patient's past medical and family history. Any updates have been documented here. Past Medical History Recent Fever: No Clinical Suspicion of Infectio: No New/Unexplained Change in Ment: No Past Medical History: Hypertension, Diabetes, A-Fib, Hyperlipedemia, DVT/PE, Chronic Kidney Disease Other Medical History: Diabetic neuropathy Past Surgical History: None Social History Smoking Cessation: Former smoker Alcohol Use: None Any Illegal Drug Use: No Physically hurt or threatened: No Other Last Tetanus: UTD Any Pre-Existing Lines (PICC,: No Review of Systems Review of Systems Constitutional: Reports no symptoms EENTM: Reports no symptoms Cardiovascular: Reports no symptoms Respiratory: Reports no symptoms Gastrointestinal: Reports no symptoms Genitourinary: Reports no symptoms Musculoskeletal: Reports joint pain, Reports joint swelling Integumentary: Reports no symptoms Neurological: Reports no symptoms Psychological: Reports no symptoms Endocrine: Reports no symptoms Hematological/Lymphatic: Reports no symptoms Physical Exam Related Data Allergies: Coded Allergies: No Known Allergies (Unverified , 06/20/18) Triage Vital Signs Vital Signs Date Time Temp Pulse Resp B/P (MAP) Pulse Ox O2 Delivery O2 Flow Rate FiO2 05/06/20 14:01 98.4 55 18 124/84 99 Room Air Vital signs reviewed: Yes Physical Exam CONSTITUTIONAL Constitutional: Present well-developed, Present well-nourished HENT HENT: Present normocephalic, Present atraumatic, Present oropharynx clear/moist, Present nose normal HENT L/R: Present left ext ear normal, Present right ext ear normal EYES Eyes: Reports PERRL, Reports conjunctivae normal NECK Neck: Present ROM normal PULMONARY Pulmonary: Present effort normal, Present breath sounds normal CARDIOVASCULAR Cardiovascular: Present regular rhythm, Present heart sounds normal, Present capillary refill normal, Present normal rate GASTROINTESTINAL Abdominal: Present soft, Present nontender, Present bowel sounds normal GENITOURINARY Genitourinary: Present exam deferred SKIN Skin: Present other (+redness over right great toe c/w cellulitis ) MUSCULOSKELETAL Musculoskeletal: Present ROM normal NEUROLOGICAL Neurological: Present alert, Present oriented x 3, Present no gross motor or sensory deficits PSYCHOLOGICAL Psychological: Present mood/affect normal, Present judgement normal Results Laboratory Lab results reviewed: Yes Laboratory comments Laboratory Tests Test 05/06/20 14:37 White Blood Count 11.22 x10e3/uL (4.8-10.8) Red Blood Count 5.30 x10e6/uL (4.3-5.7) Hemoglobin 15.8 g/dL (14.0-18.0) Hematocrit 47.6 % (38.2-49.6) Mean Corpuscular Volume 89.8 fL (81-99) Mean Corpuscular Hemoglobin 29.8 pg (28-32) Mean Corpuscular Hemoglobin Concent 33.2 g/dL (31-35) Red Cell Distribution Width 13.2 % (11.7-14.4) Platelet Count 191 x10e3/uL (140-360) Neutrophils (%) (Auto) 77.6 % (38.7-80.0) Lymphocytes (%) (Auto) 16.8 % (18.0-39.1) Monocytes (%) (Auto) 4.2 % (4.4-11.3) Eosinophils (%) (Auto) 0.4 % (0.0-6.0) Basophils (%) (Auto) 0.4 % (0.0-1.0) Neutrophils # (Auto) 8.7 (2.1-6.9) Lymphocytes # (Auto) 1.9 (1.0-3.2) Monocytes # (Auto) 0.5 (0.2-0.8) Eosinophils # (Auto) 0.1 (0.0-0.4) Basophils # (Auto) 0.0 (0.0-0.1) Absolute Immature Granulocyte (auto 0.07 x10e3/uL (0-0.1) Sodium Level 132 mmol/L (136-145) Potassium Level 4.5 mmol/L (3.5-5.1) Chloride Level 94 mmol/L (98-107) Carbon Dioxide Level 30 mmol/L (22-29) Anion Gap 12.5 mmol/L (8-16) Blood Urea Nitrogen 28 mg/dL (7-26) Creatinine 1.37 mg/dL (0.72-1.25) Estimat Glomerular Filtration Rate 51 ML/MIN (60-) BUN/Creatinine Ratio 20 (6-25) Glucose Level 532 mg/dL (74-118) Lactic Acid Level 2.6 mmol/L (0.5-2.0) Calcium Level 8.8 mg/dL (8.4-10.2) Total Bilirubin 0.5 mg/dL (0.2-1.2) Aspartate Amino Transf (AST/SGOT) 26 IU/L (5-34) Alanine Aminotransferase (ALT/SGPT) 37 IU/L (0-55) Alkaline Phosphatase 120 IU/L (40-150) Total Protein 7.3 g/dL (6.5-8.1) Albumin 2.7 g/dL (3.5-5.0) Globulin 4.6 g/dL (2.3-3.5) Albumin/Globulin Ratio 0.6 (0.8-2.0) Imaging Imaging results reviewed: Yes Impressions IMPRESSION: No acute osseous injury. Plantar calcaneal spur. Atherosclerotic calcifications. Assessment & Plan Medical Decision Making MDM 75 M arrived to the ED with right great toe infection concerning for underlying osteomyelitis. Patient given a dose of vancomycin and cefepime in the emergency department. Patient noted to be uncontrolled diabetic, normal anion gap, patient admitted for further workup and management. Assessment & Plan Final Impression: (1) Diabetic foot (2) Cellulitis and abscess of buttock Depart Disposition: ADMITTED Last Vital Signs Date Time Temp Pulse Resp B/P (MAP) Pulse Ox O2 Delivery O2 Flow Rate FiO2 05/06/20 14:01 98.4 55 18 124/84 99 Room Air Home Meds Active Scripts Cephalexin Monohydrate (KEFLEX) 500 Mg Capsule, 500 MG PO Q6HR, #40 TAB 0 Refills Prov:SANDLEROYR, SANDY, DO 12/01/19 Sulfamethoxazole/Trimethoprim (BACTRIM DS TABLET) 1 Each Tablet, 1 TAB PO BID, #20 TAB 0 Refills Prov:SANDHIR, AMBICA, DO 12/01/19 Reported Medications Doxycycline Hyclate (DOXYCYCLINE HYCLATE) 100 Mg Capsule, 100 MG PO Q12H, CAP 11/15/18 Nifedipine (PROCARDIA XL) 30 Mg Tab.er.24, 30 MG DAILY, #90 TAB 06/26/18 Potassium Chloride* (K DUR*) 10 Meq Tabcr, 20 MEQ PO DAILY, #90 06/26/18 Warfarin Sodium (WARFARIN SODIUM) 3 Mg Tablet, 5 MG PO HS, #30 TAB 06/26/18 Furosemide (LASIX) 40 Mg Tablet, 40 MG PO DAILY, #90 TAB 06/26/18 Insulin Aspart (NOVOLOG) 100 Units/1 Ml Inj, 15 UNITS SC BEFORE MEALS 06/20/18 Insulin Detemir (LEVEMIR) 100 Unit/1 Ml Vial, 40 UNITS SQ DAILY 06/20/18 Atorvastatin Calcium (ATORVASTATIN CALCIUM) 20 Mg Tablet, 20 MG PO HS, #30 TAB 06/20/18 Losartan Potassium (LOSARTAN POTASSIUM) 100 Mg Tablet, 100 MG PO DAILY, TAB 06/20/18 SANDY STEWART DO May 06, 2020 15:31
[2020-05-06 15:44] LABS: BASOPHILS % 0.4 % (0.0-1.0); EOSINOPHILS # (AUTO) 0.1 (0.0-0.4); EOSINOPHILS % 0.4 % (0.0-6.0); HEMATOCRIT 47.6 % (38.2-49.6); HEMOGLOBIN 15.8 g/dL (14.0-18.0); LYMPHOCYTES # (AUTO) 1.9 (1.0-3.2); LYMPHOCYTES % 16.8 % (18.0-39.1); MEAN CORPUSCULAR HEMOGLOBIN 29.8 pg (28-32); MEAN CORPUSCULAR HGB CONC 33.2 g/dL (31-35); MEAN CORPUSCULAR VOLUME 89.8 fL (81-99); MONOCYTES # (AUTO) 0.5 (0.2-0.8); MONOCYTES % 4.2 % (4.4-11.3); NEUTROPHILS # (AUTO) 8.7 (2.1-6.9); NEUTROPHILS % 77.6 % (38.7-80.0); PLATELET COUNT 191 x10e3/uL (140-360); RED CELL DISTRIBUTION WIDTH 13.2 % (11.7-14.4)
[2020-05-06 16:04] LABS: ALBUMIN 2.7 g/dL (3.5-5.0); ALBUMIN/GLOBULIN RATIO 0.6 (0.8-2.0); ANION GAP 12.5 mmol/L (8-16); CALCIUM 8.8 mg/dL (8.4-10.2); CREATININE, SERUM 1.37 mg/dL (0.72-1.25); POTASSIUM 4.5 mmol/L (3.5-5.1)
[2020-05-06] MEDS ORDERED: SODIUM CHLORIDE 0.9% 1000ML 1,000 ML IV STA (16:13)
[2020-05-06] MEDS ORDERED: DEXTROSE 50% SYRINGE 50 ML IV PRN ×2 (16:15→23:30)
--- NOTE | 2020-05-06 16:25 | Diagnostic Imaging Report ---
EXAMINATION: FOOT RIGHT COMPLETE INDICATION: Foot infection COMPARISON: None FINDINGS: No acute fracture or dislocation. Alignment is anatomic. The soft tissues appear radiographically unremarkable. Atherosclerotic arterial calcifications. Prominent plantar calcaneal spur. IMPRESSION: No acute osseous injury. Plantar calcaneal spur. Atherosclerotic calcifications. Signed by: Kimberly Andersen MD on 05/06/2020 4:21 PM
[2020-05-06] MEDS: INSULIN REGULAR, HUMAN 100 UNIT/1 ML 3ML VIAL SQ SCH ×2 (16:30→22:20)
--- NOTE | 2020-05-06 17:02 | NUR ---
CALLED LAB TO RE DRAW LACTIC
[2020-05-06] MEDS ORDERED: CEFEPIME 1GM/NS 0.9% 50 ML 50 ML IV ONE (18:17)
[2020-05-06] MEDS ORDERED: HYDROCODONE/APAP 5MG-325MG TAB PO PRN (23:30)
[2020-05-06] MEDS ORDERED: HYDRALAZINE HCL 25 MG TAB PO PRN (23:30)
[2020-05-06] MEDS ORDERED: ONDANSETRON HCL 4 MG ORAL DISINTEGRATING TAB PO PRN (23:30)
[2020-05-06] MEDS: PIPER-TAZ 3.375 GM 50 ML IV SCH (23:30)
[2020-05-06] MEDS ORDERED: ACETAMINOPHEN 325 MG TAB PO PRN (23:30)
[2020-05-06] MEDS ORDERED: ONDANSETRON HCL INJ 2MG/ML 2ML 2 MG/ML VIAL IV PRN (23:30)
[2020-05-06] MEDS: INSULIN LISPRO 100 UNIT/1 ML 3ML VIAL SQ SCH (23:44)
[2020-05-07] VITALS (7 sets, daily range): BP systolic 95–180; BP diastolic 63–96
[2020-05-07] MEDS ORDERED: SODIUM CHLORIDE 0.9% 250ML 250 ML ONE (00:21)
[2020-05-07] MEDS: PIPER-TAZ 3.375 GM 50 ML IV SCH ×4 (00:27→18:49)
[2020-05-07 05:48] LABS: BASOPHILS # (AUTO) 0.1 (0.0-0.1); BASOPHILS % 0.6 % (0.0-1.0); EOSINOPHILS # (AUTO) 0.1 (0.0-0.4); EOSINOPHILS % 0.6 % (0.0-6.0); HEMATOCRIT 44.5 % (38.2-49.6); HEMOGLOBIN 14.9 g/dL (14.0-18.0); LYMPHOCYTES # (AUTO) 2.4 (1.0-3.2); LYMPHOCYTES % 26.1 % (18.0-39.1); MEAN CORPUSCULAR HEMOGLOBIN 30.2 pg (28-32); MEAN CORPUSCULAR HGB CONC 33.5 g/dL (31-35); MEAN CORPUSCULAR VOLUME 90.3 fL (81-99); MONOCYTES # (AUTO) 0.6 (0.2-0.8); MONOCYTES % 6.8 % (4.4-11.3); NEUTROPHILS % 65.3 % (38.7-80.0); PLATELET COUNT 164 x10e3/uL (140-360); RED BLOOD COUNT 4.93 x10e6/uL (4.3-5.7); RED CELL DISTRIBUTION WIDTH 13.3 % (11.7-14.4)
[2020-05-07 05:58] LABS: ANION GAP 11.8 mmol/L (8-16); BLOOD UREA NITROGEN 23 mg/dL (7-26); BUN/CREATININE RATIO 26 (6-25); CALCIUM 8.2 mg/dL (8.4-10.2); CARBON DIOXIDE 28 mmol/L (22-29); CHLORIDE 103 mmol/L (98-107); EST GLOMERULAR FILTRATION RATE > 60 ML/MIN (60-); GLUCOSE 168 mg/dL (74-118); POTASSIUM 3.8 mmol/L (3.5-5.1); SODIUM 139 mmol/L (136-145)
[2020-05-07] MEDS ORDERED: VANCOMYCIN 750MG/NS 150ML IVPB 150 ML IV SCH ×2 (06:00→09:00)
[2020-05-07 06:53] LABS: INR 2.18; PROTHROMBIN TIME 25.8 seconds (11.9-14.5)
[2020-05-07] MEDS ORDERED: NIFEDIPINE CR 30 MG TAB PO SCH (09:00)
[2020-05-07] MEDS ORDERED: INSULIN GLARGINE 100 UNITS/ML VIAL SQ SCH (09:00)
[2020-05-07] MEDS: VANCOMYCIN 750MG/NS 150ML IVPB 150 ML IV SCH ×2 (10:18→21:14)
[2020-05-07] MEDS: LOSARTAN POTASSIUM 100 MG TAB PO SCH (10:18)
[2020-05-07] MEDS: NIFEDIPINE CR 30 MG TAB PO SCH ×2 (10:20→21:14)
--- NOTE | 2020-05-07 10:21 | History and Physical ---
PRIMARY CARE PHYSICIAN: Dr. Fernie Chaudhary. [employer]ER: Caio Zapien DPM REASON FOR ADMISSION: Right greater toe diabetic toe ulcer, possible osteomyelitis. HISTORY OF PRESENT ILLNESS: The patient is a 75-year-old male with hypertension; diabetes type 2, on insulin; atrial fibrillation, on warfarin; history of pulmonary embolism; dyslipidemia; chronic kidney disease; and diabetic neuropathy with DVT of the lower extremity history, came in with a complaint of right greater toe infection, diabetic toe ulcer noticed with surrounding redness and pain with range of motion. The patient stated that this has been going on for at least a week or so. The patient was sent to the emergency room by his primary care physician for evaluation. In the emergency room, the patient found to have greater toe callus with an open wound. He also has surrounding redness and swelling. There are possibilities of osteomyelitis on examination. The patient placed on IV antibiotics and admitted. He did have a slight increase in WBC of 11.2. The patient is otherwise stable. Blood sugar was elevated at 532 and his lactic acid was 2.6. The patient was placed on insulin sliding scale coverage. His diabetes is quite uncontrolled. Preliminary lab showed glycohemoglobin A1c of 14.8. PAST MEDICAL HISTORY: Uncontrolled diabetes type 2 with glycohemoglobin A1c of 14.8, he is on insulin; history of DVT; [id number] embolism, on warfarin; hypertension; dyslipidemia; and peripheral vascular disease. PAST SURGICAL HISTORY: Noncontributory. SOCIAL HISTORY: The patient does not smoke or use alcohol. No illegal drugs. ALLERGIES: NO KNOWN ALLERGIES. HOME MEDICATIONS: 1. Lipitor. 2. Keflex. 3. Doxycycline. 4. Furosemide. 5. Insulin, NovoLog. 6. Insulin, Levemir. 7. Losartan. 8. Nifedipine. 9. Potassium. 10. Bactrim. 11. Warfarin. REVIEW OF SYSTEMS: Of note, the patient failed outpatient treatment for right greater toe infection with Keflex, doxycycline, and Bactrim. PHYSICAL EXAMINATION: VITAL SIGNS: Temperature is 98.7, blood pressure 180/96, pulse rate is 60, and respirations 16. GENERAL: The patient is not in acute distress. He is awake. HEENT: Normocephalic, atraumatic. Anicteric. NECK: Supple grossly. PULMONARY: Diminished breath sounds without any wheezing or rales. CARDIOVASCULAR: S1, S2, irregularly irregular rate control. ABDOMEN: Soft, obese. EXTREMITIES: There are some chronic venous skin changes of the lower extremity, right greater toe callus and open wound. There is redness consistent with infection, cellulitis, diabetic toe ulcer with possible osteomyelitis. PLAN: Antibiotics. Control blood sugar, uncontrolled diabetes with glycohemoglobin A1c was 14.8. We will place the patient on insulin sliding scale and schedule dosing. We will continue with wound care. Consultation with Dr. Caio Zapien. I will get an MRI of the right greater toe. The patient may need surgical intervention pending on the imaging test and consultation with Dr. Caio Zapien. The patient is otherwise stable. Renal function is stable. We will continue with management at this time. The patient is admitted inpatient. MD LATRICIA Pritchett/RU /[id number]
[2020-05-07] MEDS: INSULIN LISPRO 100 UNIT/1 ML 3ML VIAL SQ SCH ×7 (10:30→21:29)
--- NOTE | 2020-05-07 11:46 | Diagnostic Imaging Report ---
TECHNIQUE: Magnetic resonance imaging of the RIGHT foot was performed WITHOUT injected contrast. HISTORY: Osteomyelitis, evaluate for infection COMPARISON: None available. DISCUSSION: Soft tissue ulceration of the hallux with bone marrow edema and T1 replacement involving the distal phalanx. No abscess. Remainder of the bone marrow signal is normal. Atrophy of the foot musculature. IMPRESSION: Osteomyelitis of the distal phalanx of the hallux Signed by: Dr. Hammad Cano M.D. on 05/07/2020 11:43 AM
--- NOTE | 2020-05-07 14:03 | NUR ---
Dr. Joy visited as she is covering for Dr. Zapien and orders given and carried out. Dr. Estrada is to see the pt. and prescribe abx therapy and or vascular intervention as needed.
--- NOTE | 2020-05-07 16:08 | NUR ---
Wet to dry dressing applied to right great toe.
--- NOTE | 2020-05-07 16:12 | NUR ---
Consult called to DR. Estrada and I spoke with Akiko.
--- NOTE | 2020-05-07 18:47 | NUR ---
he patient is a 75-year-old male with hypertension; diabetes type 2, on insulin; atrial fibrillation, on warfarin; history of pulmonary embolism; dyslipidemia; chronic kidney disease; and diabetic neuropathy with DVT of the lower extremity history, came in with a complaint of right greater toe infection, diabetic toe ulcer noticed with surrounding redness and pain with range of motion. The patient stated that this has been going on for at least a week or so. The patient was sent to the emergency room by his primary care physician for evaluation. In the emergency room, the patient found to have greater toe callus with an open wound. He also has surrounding redness and swelling. There are possibilities of osteomyelitis on examination. The patient placed on IV antibiotics and admitted. He did have a slight increase in WBC of 11.2. The patient is otherwise stable. Blood sugar was elevated at 532 and his lactic acid was 2.6. The patient was placed on insulin sliding scale coverage. His diabetes is quite uncontrolled. Preliminary lab showed glycohemoglobin A1c of 14.8. PAST MEDICAL HISTORY: Uncontrolled diabetes type 2 with glycohemoglobin A1c of 14.8, he is on insulin; history of DVT; [id number] embolism, on warfarin; hypertension; dyslipidemia; and peripheral vascular disease. PAST SURGICAL HISTORY: Noncontributory. SOCIAL HISTORY: The patient does not smoke or use alcohol. No illegal drugs. ALLERGIES: NO KNOWN ALLERGIES. HOME MEDICATIONS: 1. Lipitor. 2. Keflex. 3. Doxycycline. 4. Furosemide. 5. Insulin, NovoLog. 6. Insulin, Levemir. 7. Losartan. 8. Nifedipine. 9. Potassium. 10. Bactrim. 11. Warfarin. REVIEW OF SYSTEMS: Of note, the patient failed outpatient treatment for right greater toe infection with Keflex, doxycycline, and Bactrim. [id number]
--- NOTE | 2020-05-07 20:18 | History and Physical ---
REASON FOR CONSULTATION: Consulted for right great toe diabetic ulceration with osteomyelitis. HISTORY OF PRESENT ILLNESS: This is a 75-year-old male with a past medical history significant for type 2 diabetes mellitus, atrial fibrillation, hypertension on warfarin, who presented to the ER for worsening pain and swelling from the right great toe. On admission, he admitted to uncontrolled diabetes mellitus, but he denied any constitutional symptoms. PAST MEDICAL HISTORY: Significant for uncontrolled diabetes mellitus, history of DVT, PE, hypertension, hyperlipidemia, and PVD. PAST SURGICAL HISTORY: Noncontributory. SOCIAL HISTORY: The patient denies any illicit drug abuse. ALLERGIES: NO KNOWN DRUG ALLERGIES. HOME MEDICATIONS: See MAR. REVIEW OF SYSTEMS: As stated above. PHYSICAL EXAMINATION: VITAL SIGNS: Reviewed. Labs were reviewed. HEAD: Normocephalic. CHEST: Denies any chest pain. LUNGS: Denies any shortness of breath. ABDOMEN: Soft, nontender. EXTREMITIES: Lower extremity, nonpalpable pulses to the dorsalis pedis and posterior tibial pulse of the right lower extremity. There is a full thickness ulceration noted to the tip of the right Hallux. However, there was no pustular drainage. No proximal streaking and no keerthi exposure noted at this time. IMAGING DATA: MR was reviewed which showed osteomyelitis of the distal phalanx of the right great toe. X-rays were reviewed which are also consistent with cortical erosions which are consistent with osteomyelitis of the distal phalanx of the right great toe. PLAN: From Podiatry standpoint, begin betaine with dry dressing daily per nursing. I will order arterial doppler to determine circulation status of the right lower extremity. I will also recommend an Infectious Disease consultation for antibiotic management. At this point, we will plan for conservative care consisting of bedside debridement. If circulation is adequate to the right great toe with IV antibiotics, Podiatry will continue to follow. Thank you again for including in the care of this patient. JUAN DIEGO Blancas/RU /[id number]
[2020-05-07] MEDS: ATORVASTATIN 20 MG TAB PO SCH (21:14)
--- NOTE | 2020-05-07 21:34 | Consultation ---
DATE OF CONSULTATION: REASON FOR CONSULTATION: Osteomyelitis, right foot. HISTORY OF PRESENT ILLNESS: This patient, who is a 75-year-old male, who has history of infection and diabetic foot ulcer of right foot. The patient, who has history of hypertension, diabetes mellitus on insulin, neuropathy, atrial fibrillation on Coumadin, pulmonary embolism, hyperlipidemia, chronic kidney disease, diabetic neuropathy, and DVT, comes in with the right foot, big toe getting progressively worse over the last few weeks. In the emergency room, he was diagnosed with callus and infection, has already been seen by Podiatry. The patient is being admitted. I am asked to see him to make recommendation in terms of antibiotic. When I saw the patient, he is alert, oriented, resting comfortably. REVIEW OF SYSTEMS: A 14-point reviewed, all are negative. LABORATORY DATA: White count is 9.2 and hemoglobin of 14. Sodium 139, potassium 3.8, and creatinine 0.9. His COVID-19 is still pending. MEDICATIONS: The patient is currently on insulin, Zosyn, vancomycin, and Lovenox. PHYSICAL EXAMINATION: GENERAL: He is currently alert and oriented. Does not seem to be in acute distress. VITAL SIGNS: Stable, currently afebrile. HEENT: He is normocephalic. NECK: Supple. CHEST: Clear bilateral. HEART: S1 and S2. No S3, S4, or murmurs. ABDOMEN: Soft. Bowel sounds present. No tenderness. EXTREMITIES: No edema. SKIN: No rash. Right big toe ulcer, there is erythema and edema. There is an ulcer noted at the plantar aspect of the foot, big toe. MRI confirmed distal phalanx osteomyelitis. IMPRESSION: Osteomyelitis, diabetes mellitus with neuropathy, peripheral vascular disease, and history of chronic kidney disease. Agree with vancomycin. Agree with Zosyn. Obtain sedimentation rate and C-reactive protein. Surgical debridement per Podiatry. Vascular workup. Failed oral antibiotic. May need PICC line. We will simplify his antibiotics, vancomycin and Rocephin. We will follow with you. Depending on the above, the length of the IV antibiotic depending on the workup by Podiatry if any debridement. MD SARAH BETH Hernandez/RU /[id number]
[2020-05-08] VITALS (8 sets, daily range): BP systolic 135–155; BP diastolic 79–99
[2020-05-08] MEDS: PIPER-TAZ 3.375 GM 50 ML IV SCH ×4 (06:34→17:54)
[2020-05-08] MEDS ORDERED: ENOXAPARIN SOD INJ 40 MG/0.4 ML SYR SC SCH (08:00)
--- NOTE | 2020-05-08 09:30 | NUR ---
The pt. comp of pain at the iv site and it was discontinued and new start in the right wrist area 20g 2 sticks.
[2020-05-08] MEDS: VANCOMYCIN 750MG/NS 150ML IVPB 150 ML IV SCH ×2 (09:43→21:17)
[2020-05-08] MEDS: LOSARTAN POTASSIUM 100 MG TAB PO SCH (09:43)
[2020-05-08] MEDS: ENOXAPARIN SOD INJ 60 MG/0.6 ML SYR SC SCH ×2 (09:43→21:17)
[2020-05-08] MEDS: NIFEDIPINE CR 30 MG TAB PO SCH ×2 (09:44→21:18)
[2020-05-08] MEDS: INSULIN GLARGINE 100 UNITS/ML VIAL SQ SCH (09:51)
[2020-05-08] MEDS: INSULIN LISPRO 100 UNIT/1 ML 3ML VIAL SQ SCH ×7 (09:52→21:35)
--- NOTE | 2020-05-08 12:47 | NUR ---
Dressing to right foot changed.
--- NOTE | 2020-05-08 19:58 | Progress Note ---
DATE: 05/08/2020 SUBJECTIVE: The patient was seen at bedside today, significantly improved since previous examination. Denies any constitutional symptoms overnight. He did have the arterial dopplers performed, however, report is not in yet. Clinically, the wound has significantly improved. There is no drainage. No acute signs of infection noted at this time. The needle was noted to be loose, however, there is no underlying drainage or any sort of acute infection noted. ASSESSMENT: Osteomyelitis right hallux, diabetes mellitus with neuropathy, peripheral vascular disease, history of chronic kidney disease. PLAN: From Podiatry standpoint, continue local wound care consisting of Betadine wet to dry dressing. From Podiatry standpoint, we will not plan for any surgical intervention at this time due to the significant improvement on the IV antibiotics. I will recommend continue IV antibiotics per Infectious Disease. If the arterial doppler results come back with minimal vascular disease, the patient is okay to be discharged from Podiatry standpoint if okay with Medicine and Infectious Disease and he can follow up with me in clinic. Thank you again for including me in the care of this patient. Gely Joy DPM [facility]/RU /[id number]
[2020-05-08] MEDS: ATORVASTATIN 20 MG TAB PO SCH (21:18)
[2020-05-09] VITALS (8 sets, daily range): BP systolic 143–179; BP diastolic 78–103
[2020-05-09] MEDS: PIPER-TAZ 3.375 GM 50 ML IV SCH ×4 (00:02→17:45)
[2020-05-09] MEDS: INSULIN LISPRO 100 UNIT/1 ML 3ML VIAL SQ SCH ×8 (07:30→21:30)
[2020-05-09] MEDS: VANCOMYCIN 750MG/NS 150ML IVPB 150 ML IV SCH ×2 (09:15→20:32)
[2020-05-09] MEDS: ENOXAPARIN SOD INJ 60 MG/0.6 ML SYR SC SCH ×2 (09:21→20:32)
[2020-05-09] MEDS: NIFEDIPINE CR 30 MG TAB PO SCH ×2 (09:21→20:32)
[2020-05-09] MEDS: LOSARTAN POTASSIUM 100 MG TAB PO SCH (09:21)
[2020-05-09] MEDS: INSULIN GLARGINE 100 UNITS/ML VIAL SQ SCH (09:25)
--- NOTE | 2020-05-09 19:25 | NUR ---
PATIENT RECEIVED. PATIENT IS AAOX3. RESP EVEN AND UNLABORED. DENIED OF ANY PAIN OR DISCOMFORT AT THIS TIME. TELE IN PLACE. RIGHT FOOT DRESSING NOTED, DRY AND INTACT. EDUCATED PT ABOUT FALL PRECAUTIONS. PT VERBALIZED UNDERSTANDING. CALL LIGHT WITH IN EASY REACH. INSTRUCTED PT TO USE CALL LIGHT FOR ALL THE NEEDS. BED IS LOW AND LOCKED. SIDE RAILS X2. BED ALARM IS ON. CONTINUE TO MONITOR CLOSELY
[2020-05-09] MEDS: ATORVASTATIN 20 MG TAB PO SCH (20:32)
[2020-05-09] MEDS ORDERED: SODIUM CHLORIDE 0.9% 250ML 250 ML ONE (23:52)
[2020-05-10] VITALS (8 sets, daily range): BP systolic 108–169; BP diastolic 76–89
[2020-05-10] MEDS: PIPER-TAZ 3.375 GM 50 ML IV SCH ×4 (00:10→16:57)
[2020-05-10] MEDS: VANCOMYCIN 750MG/NS 150ML IVPB 150 ML IV SCH ×2 (08:13→22:41)
[2020-05-10] MEDS: LOSARTAN POTASSIUM 100 MG TAB PO SCH (08:13)
[2020-05-10] MEDS: ENOXAPARIN SOD INJ 60 MG/0.6 ML SYR SC SCH ×2 (08:13→22:41)
[2020-05-10] MEDS: NIFEDIPINE CR 30 MG TAB PO SCH ×2 (08:14→21:00)
[2020-05-10] MEDS: INSULIN GLARGINE 100 UNITS/ML VIAL SQ SCH (08:14)
[2020-05-10] MEDS: INSULIN LISPRO 100 UNIT/1 ML 3ML VIAL SQ SCH ×7 (08:14→21:00)
--- NOTE | 2020-05-10 19:20 | NUR ---
received report from day nurse. patient is resting comfortably in the bed. bed is in lowest position and call light is within reach. will continue to monitor patient.
--- NOTE | 2020-05-10 21:27 | Consultation ---
DATE OF CONSULTATION: 05/10/2020 Cardiology Consultation CONSULTING PHYSICIAN: Bryon Canela MD, Interventional Cardiology. REASON FOR CONSULTATION: Peripheral artery disease. HISTORY OF PRESENT ILLNESS: Mr. Rogers is a pleasant 75-year-old man with history of type 2 diabetes mellitus, hypertension, dyslipidemia, history of DVT, PE and atrial fibrillation, for which he is on anticoagulation at home. Presents with right first toe wound associated erythema and discomfort. He underwent evaluation by Podiatry and was initiated on antibiotic with Zosyn and vancomycin. Arterial Dopplers were performed and are remarkable for monophasic waveforms from distal popliteal and across the right [id number]-qsl-jspo vessel over about his GOPI and PT. The patient is on Lovenox bridge at this point. His INR is 2.1. REVIEW OF SYSTEMS: A 12-system review negative except for as noted above. PAST MEDICAL HISTORY: Remarkable for diabetes, hypertension, atrial fibrillation, PE, DVT, and PAD. SOCIAL HISTORY: No active smoking, alcohol, or drugs. FAMILY HISTORY: Noncontributory. ALLERGIES: NO KNOWN DRUG ALLERGIES. PHYSICAL EXAMINATION: VITAL SIGNS: Temperature 98.4, heart rate 55, blood pressure 128/88, respiratory rate 20, O2 saturation 99%. BMI is 32.9. GENERAL: No acute distress. Alert. NECK: No JVD. CHEST: Clear to auscultation. CARDIOVASCULAR: Irregularly irregular rate and rhythm. Normal S1, S2. No S3 or S4. ABDOMEN: Soft. Bowel sounds positive. EXTREMITIES: Trace edema. Right foot covered with dressings. Abnormal pedal pulses. CARDIOVASCULAR MEDICATIONS: Reviewed. Losartan 100 mg daily, hydralazine 25 mg q.4 hours, nifedipine 30 mg b.i.d., atorvastatin 20 mg at bedtime, Lovenox 60 mg q.12 hours. LABORATORY DATA: Studies reviewed. Sodium 139, potassium 3.8, chloride 103, bicarbonate 28, BUN 23 and creatinine 0.9, glucose 168. White blood cells 9.2, hemoglobin 14.9, platelets 164. INR 2.1, PT 25. AST 26, ALT 37, alkaline phosphatase 120. ASSESSMENT AND PLAN: A 75-year-old man with : 1. Peripheral arterial disease, presents with critical limb ischemia and right first toe wound. 2. Diabetes mellitus. 3. Hypertension. 4. History of deep vein thrombosis, pulmonary embolism. 5. Atrial fibrillation. RECOMMENDATIONS: 1. Peripheral angiography and endovascular intervention advised. Wound care and antibiotics encouraged. 2. Diabetes optimization. 3. Continue current antihypertensives. 4. INR 2.1. We will confirm with the patient whether he has recently taking any p.o. anticoagulation. Although, Lovenox do not to seem to see any prescribed in hospital. We will hold Lovenox prior to angiography. Timing for procedure will be coordinated based on lab support service tech availability and with current limitations resulting from healthcare response to increasing COVID cases locally. Bryon Canela MD [facility]/MODL /[id number]
[2020-05-10] MEDS: ATORVASTATIN 20 MG TAB PO SCH (22:42)
[2020-05-11] VITALS (7 sets, daily range): BP systolic 116–151; BP diastolic 72–92
[2020-05-11 06:20] LABS: BASOPHILS # (AUTO) 0.1 (0.0-0.1); BASOPHILS % 0.7 % (0.0-1.0); EOSINOPHILS # (AUTO) 0.1 (0.0-0.4); EOSINOPHILS % 0.7 % (0.0-6.0); HEMATOCRIT 44.8 % (38.2-49.6); HEMOGLOBIN 14.6 g/dL (14.0-18.0); LYMPHOCYTES # (AUTO) 1.9 (1.0-3.2); LYMPHOCYTES % 26.4 % (18.0-39.1); MEAN CORPUSCULAR HEMOGLOBIN 30.2 pg (28-32); MEAN CORPUSCULAR HGB CONC 32.6 g/dL (31-35); MEAN CORPUSCULAR VOLUME 92.6 fL (81-99); MONOCYTES # (AUTO) 0.5 (0.2-0.8); MONOCYTES % 7.1 % (4.4-11.3); NEUTROPHILS # (AUTO) 4.6 (2.1-6.9); NEUTROPHILS % 64.8 % (38.7-80.0); PLATELET COUNT 152 x10e3/uL (140-360); RED BLOOD COUNT 4.84 x10e6/uL (4.3-5.7); RED CELL DISTRIBUTION WIDTH 13.8 % (11.7-14.4)
[2020-05-11] MEDS: PIPER-TAZ 3.375 GM 50 ML IV SCH ×4 (06:35→16:50)
[2020-05-11 06:39] LABS: ANION GAP 10.1 mmol/L (8-16); BLOOD UREA NITROGEN 16 mg/dL (7-26); BUN/CREATININE RATIO 18 (6-25); CALCIUM 9.1 mg/dL (8.4-10.2); CARBON DIOXIDE 26 mmol/L (22-29); CHLORIDE 109 mmol/L (98-107); CREATININE, SERUM 0.89 mg/dL (0.72-1.25); EST GLOMERULAR FILTRATION RATE > 60 ML/MIN (60-); GLUCOSE 157 mg/dL (74-118); POTASSIUM 4.1 mmol/L (3.5-5.1); SODIUM 141 mmol/L (136-145)
--- NOTE | 2020-05-11 06:59 | NUR ---
report given t to day nurse. patient is resting comfortably in bed, bed is low position and call light is within reach.
[2020-05-11] MEDS: INSULIN LISPRO 100 UNIT/1 ML 3ML VIAL SQ SCH ×7 (07:30→20:32)
[2020-05-11] MEDS: ENOXAPARIN SOD INJ 60 MG/0.6 ML SYR SC SCH ×2 (08:54→20:12)
[2020-05-11] MEDS: LOSARTAN POTASSIUM 100 MG TAB PO SCH (08:55)
[2020-05-11] MEDS: NIFEDIPINE CR 30 MG TAB PO SCH ×2 (09:00→20:13)
[2020-05-11] MEDS: INSULIN GLARGINE 100 UNITS/ML VIAL SQ SCH (09:30)
--- NOTE | 2020-05-11 15:12 | NUR ---
Nutrition Screen Note RD Recommendation for Physician: -Continue current diet as ordered Plan of Care: RD following, monitoring for tolerance and adequacy Nutrition reason for involvement: length of stay Primary Diagnose(s): diabetic foot, hyperglycemia due to diabetes mellitus PMH: Uncontrolled diabetes type 2 with A1c of 14.8, he is on insulin; history of DVT; pulmonary embolism, on warfarin hypertension;dyslipidemia; and peripheral vascular disease. Ht: 63 in Wt: 186 lb BMI: 32.9 kg/m2 IBW:[address] Assessment: (05/11/20) Chart reviewed. Labs and meds reviewed. Pt is a 75 year old male admitted with diabetic foot and hyperglycemia due to diabetes mellitus. Pt is primarily Yakut speaking per chart. It is recorded that pt has been consuming 75-100% of meals. Per weight history, pt weighed 186-190 lbs from a previous admission in October 2019. Pt currently weighs 186 lbs in chart; therefore, weight loss does not appear evident. Will continue to monitor Current Diet: 1800 ADA Malnutrition Evaluation (05/11/20) The patient does not meet criteria for a specified degree of malnutrition at this time. Will re-evaluate at follow-up as appropriate. Diet Education Needs Assessment: RD is available for diet education as needed Nutrition Care Level: low Signed: Otilia Gutierres, RD, LD
--- NOTE | 2020-05-11 16:50 | Progress Note ---
DATE: 05/11/2020 Cardiology Progress Note SUBJECTIVE: Denies any chest pain or shortness of breath. Discussed at length, abnormal arterial Doppler findings and recommendation for peripheral angiography and possible intervention. The patient agrees to stay for procedure early next week. No other complaints at this time. OBJECTIVE: VITAL SIGNS: Temperature 97.4, heart rate 59, blood pressure 151/92, respiratory rate 20, O2 saturation 97%, BMI 32. GENERAL: No acute distress. Alert. NECK: No JVD. CHEST: Clear to auscultation. CARDIOVASCULAR: Regular rate and rhythm. Normal S1, S2. ABDOMEN: Soft. Bowel sounds positive. EXTREMITIES: Trace edema. Right toe wound covered with dressings. MEDICATIONS: Cardiovascular medications reviewed. Hydralazine, losartan, nifedipine, Lovenox, atorvastatin. LABORATORY DATA: Studies reviewed. Creatinine 0.8. White blood cells 7, hemoglobin 14, platelets 152. INR 2.1. ASSESSMENT AND PLAN: A 75-year-old man presents with critical limb ischemia and right 1st toe wound, now status post I and D by Podiatry. Abnormal arterial Doppler ultrasound findings concerning for popliteal and vesdn-htq-fhul vessel disease to the right lower extremity. Recommend angiography and possible endovascular intervention early next week. Continue current cardiovascular medications with plan to hold Lovenox the following night and Wednesday. We will discuss lab to request availability for Wednesday a.m. Continue rest of cardiovascular medications. MD J CARLOS Hollis/RU /[id number]
[2020-05-11] MEDS: ATORVASTATIN 20 MG TAB PO SCH (20:12)
[2020-05-12] VITALS (8 sets, daily range): BP systolic 118–153; BP diastolic 78–114
[2020-05-12] MEDS: PIPER-TAZ 3.375 GM 50 ML IV SCH ×5 (00:42→23:08)
[2020-05-12] MEDS: INSULIN LISPRO 100 UNIT/1 ML 3ML VIAL SQ SCH ×7 (07:30→23:06)
[2020-05-12] MEDS: ENOXAPARIN SOD INJ 60 MG/0.6 ML SYR SC SCH (08:41)
[2020-05-12] MEDS: NIFEDIPINE CR 30 MG TAB PO SCH ×2 (08:42→21:39)
[2020-05-12] MEDS: LOSARTAN POTASSIUM 100 MG TAB PO SCH (08:42)
[2020-05-12] MEDS: INSULIN GLARGINE 100 UNITS/ML VIAL SQ SCH (09:00)
--- NOTE | 2020-05-12 11:35 | NUR ---
Dressing changed to right great toe.
[2020-05-12] MEDS ORDERED: ATORVASTATIN 20 MG TAB PO SCH (20:45)
--- NOTE | 2020-05-12 21:16 | Progress Note ---
DATE: 05/12/2020 Cardiology Progress Note SUBJECTIVE: Sleepy. No complaints. OBJECTIVE: VITAL SIGNS: Temperature 97.5, heart rate 63, respiratory rate 20, blood pressure 127/114, and O2 saturation 99% on room air. GENERAL: No acute distress. Alert. NECK: No JVD. CHEST: Clear to auscultation. CARDIOVASCULAR: Regular rate and rhythm. Normal S1 and S2. No S3 or S4. ABDOMEN: Soft. Bowel sounds positive. EXTREMITIES: No edema. Right foot wound covered with dressings. CARDIOVASCULAR MEDICATIONS: Reviewed. Nifedipine 30 mg every 12 hours, losartan 100 mg daily, Lovenox 60 mg every 12 hours, and atorvastatin 20 mg at bedtime. STUDIES: Reviewed. White blood cells 7, hemoglobin 14, and platelets 152. Most recent creatinine 0.8. TELEMETRY: Reviewed, in sinus rhythm. ASSESSMENT AND PLAN: A 75-year-old woman presents with critical limb ischemia, right 1st toe wound, status post I and D by Podiatry with abnormal arterial Dopplers, concerning for popliteal and infragenicular disease. RECOMMEND: Hold Lovenox, aspirin, and plan for peripheral angiography and possible intervention tomorrow morning. Continue rest of cardiovascular medications. Bryon Canela MD AFAlysa/RU /[id number]
[2020-05-12] MEDS: SODIUM CHLORIDE 0.9% 1000ML 1,000 ML IV SCH (21:38)
[2020-05-12] MEDS: ASPIRIN 81 MG CHEW TAB PO SCH (21:38)
[2020-05-12] MEDS: ATORVASTATIN 20 MG TAB PO SCH (21:39)
--- NOTE | 2020-05-12 22:39 | NUR ---
Bed side patient was made aware of the procedure and possible risk by , daughter was called and informed by me about the possible procedure. Chief Media Officer service was used to enquire from patient understanding and any concerns, patient verbalized understanding and no concerns at this time. fisher purse seine id: [id number]
[2020-05-13] VITALS (7 sets, daily range): BP systolic 110–163; BP diastolic 70–95
[2020-05-13] MEDS: SODIUM CHLORIDE 0.9% 1000ML 1,000 ML IV SCH ×2 (06:50→22:50)
[2020-05-13] MEDS: PIPER-TAZ 3.375 GM 50 ML IV SCH ×2 (06:50→18:00)
--- NOTE | 2020-05-13 07:00 | NUR ---
Patient condition throughout the night was stable, patient endorsed to next shift for continuity of care.
--- NOTE | 2020-05-13 07:00 | NUR ---
Patient condition throughout the night was stable, patient endorsed to next shift for continuity of care.
[2020-05-13 07:01] LABS: PROTHROMBIN TIME 13.8 seconds (11.9-14.5)
[2020-05-13 07:02] LABS: PARTIAL THROMBOPLASTIN TIME 29.6 seconds (23.8-35.5)
[2020-05-13 07:12] LABS: ANION GAP 9.9 mmol/L (8-16); BLOOD UREA NITROGEN 12 mg/dL (7-26); BUN/CREATININE RATIO 16 (6-25); CALCIUM 8.5 mg/dL (8.4-10.2); CARBON DIOXIDE 25 mmol/L (22-29); CHLORIDE 110 mmol/L (98-107); CREATININE, SERUM 0.76 mg/dL (0.72-1.25); EST GLOMERULAR FILTRATION RATE > 60 ML/MIN (60-); GLUCOSE 118 mg/dL (74-118); POTASSIUM 3.9 mmol/L (3.5-5.1); SODIUM 141 mmol/L (136-145)
[2020-05-13] MEDS: INSULIN LISPRO 100 UNIT/1 ML 3ML VIAL SQ SCH ×7 (07:30→21:00)
[2020-05-13] MEDS: ASPIRIN 81 MG CHEW TAB PO SCH (09:00)
[2020-05-13] MEDS: NIFEDIPINE CR 30 MG TAB PO SCH ×2 (09:00→22:30)
[2020-05-13] MEDS: INSULIN GLARGINE 100 UNITS/ML VIAL SQ SCH (09:00)
[2020-05-13] MEDS: LOSARTAN POTASSIUM 100 MG TAB PO SCH (09:00)
[2020-05-13] MEDS ORDERED: HEPARIN SOD (PORCINE) 1000 UNIT/ML 30ML ONE (09:15)
[2020-05-13] MEDS ORDERED: FENTANYL CITRATE/PF 100MCG/2 ML INJ ONE (09:15)
[2020-05-13] MEDS ORDERED: MIDAZOLAM HCL 2 MG/2 ML VIAL ONE (09:15)
[2020-05-13] MEDS ORDERED: IOPAMIDOL 300MG/ML 100 ML INFUS..BTL IV ONE ×2 (09:16→10:16)
[2020-05-13] MEDS ORDERED: NITROGLYCERIN/D5W 200 MCG/ML 250 ML ONE (09:16)
[2020-05-13] MEDS ORDERED: LIDOCAINE HCL 2% LOCAL 20 ML VIAL ONE (09:16)
[2020-05-13] MEDS ORDERED: HEPARIN SOD/SOD CHLORIDE 2,000 ML ONE (09:16)
[2020-05-13] MEDS ORDERED: SODIUM CHLORIDE 0.9% 1000ML 1,000 ML ONE ×2 (09:16→10:03)
--- NOTE | 2020-05-13 09:25 | NUR ---
PT TO MOBILE PARAMEDICAL EXAMINER VIA BED AFTER CONSENT COMPLETER.
[2020-05-13] MEDS ORDERED: VERAPAMIL HCL 2.5 MG/ML 2 ML VIAL ONE (10:03)
[2020-05-13] MEDS ORDERED: CLOPIDOGREL BISULFATE 75 MG TAB ONE (10:14)
[2020-05-13] MEDS ORDERED: ASPIRIN 325 MG TAB ONE (10:14)
--- NOTE | 2020-05-13 11:27 | NUR ---
PT BACK IN ROOM AFTER PROCEDURE PT UNDERSTANDS HE IS TO LYE FLAT TILL 1530. URINAL AND CALL BRUNO AT SIDE. DRSG WITH A SM AMT OF BLOOD NOTED TO IT.
[2020-05-13] MEDS ORDERED: ACETAMINOPHEN 325 MG TAB PO PRN (11:30)
[2020-05-13] MEDS ORDERED: ONDANSETRON HCL INJ 2MG/ML 2ML 2 MG/ML VIAL IV PRN (11:30)
[2020-05-13] MEDS ORDERED: MORPHINE SULFATE INJ 4 MG/ML INJ 1ML IV PRN (11:30)
[2020-05-13] MEDS ORDERED: CLOPIDOGREL BISULFATE 75 MG TAB PO SCH (12:00)
--- NOTE | 2020-05-13 13:08 | Operative Report ---
DATE OF PROCEDURE: 05/13/2020 SURGEON: Bryon Canela MD DIRECTOR OF FINANCIAL AID: Dr. Bryon Canela, Interventional Cardiology. PROCEDURE INDICATION: Critical limb ischemia to right foot with wound to right 1st toe and severe abnormal Doppler findings. PROCEDURE PERFORMED: 1. Abdominal aortogram. 2. Selective lower extremity angiography, bilateral. 3. Third order catheter placement from left femoral artery to right femoral artery. 4. Catheter placement in the aorta. 5. Additional third-order catheter placement from left femoral artery to right popliteal artery. 6. Additional third-order catheter placement from left femoral artery to right posterior tibial artery. 7. Drug-eluting balloon HELP DESK TEAM LEADER of the right popliteal artery with 5.0 x 40 Lutonix balloon. 8. Right posterior tibial CSI atherectomy with 1.25 solid crown device at 60,000 rpm and HELP DESK TEAM LEADER with 2.5 x 220 all traversed balloon and drug-eluting stents 3.0 x 22 Resolute Sean to proximal right popliteal segment. 9. Additional intervention to the right anterior tibial with CSI atherectomy with 1.25 kendal at 60,000 and 90,000 rpm followed by 3.0 x 150 all traversed balloon HELP DESK TEAM LEADER. 10. Of note, Spider FX embolic protection device used during the intervention of the right popliteal artery, excellent final angiographic results. FINDINGS: Renal arteries are not fully visualized, however, seem patent to extent observed. There are luminal irregularities observed to the infrarenal aorta and iliac vessels, common femoral vessels per profunda femoris and superficial femoris bilaterally. The right popliteal artery has distal 98% focal stenosis distal to this, RUBIN 2.5 flow. Right anterior tibial with 70 and 90% mid stenosis. The right TP trunk patent, right peroneal artery patent, right posterior tibial ostial 80%, proximal 90%, mid 80%. All these lesions were targeted and intervened successfully. Postprocedure with RUBIN-3 flow. No flow-limiting dissections. No perforations and less than 10% residual stenosis. The left popliteal artery has luminal irregularities. Left anterior tibial artery seems occluded in the mid to distal segment. The peroneal, TP trunk and posterior tibial artery seemed patent, however not fully visualized to the left. INTERVENTION: Heparin was used to maintain an ACT over 250. Aspirin and Plavix loading 325 aspirin, Plavix 600 mg was administered. A 6-Albanian up and over sheath 45 mm MARADIAGA tip Terumo sheath was advanced to the right femoral artery position after initial Omni Flush catheter was positioned in the infrarenal aorta for abdominal aortogram, selective lower extremity angiography with digital subtraction was performed using catheter position in the right femoral artery, right popliteal artery, right posterior tibial artery and left external iliac artery. The area of popliteal stenosis was crossed using a run-through wire and over catheter exchanged for spider FX embolic protection device, HELP DESK TEAM LEADER with all traversed balloon was performed 4.0 to nominal pressures followed by drug-eluting Lutonix balloon 5.0 x 40, completed over 2 minutes to nominal pressure with excellent results. Attention then redirected after exchanging of Spider wire for a run-through wire to the posterior tibial artery which was crossed with a 0.014 Seeker catheter exchanged for CSI Viper wire, 1.25 kendal was used at 60,000 rpm passes across the posterior tibial, followed by 2.5 x 220 altered balloon to nominal pressures followed by an area of proximal posterior tibial residual right colon stenosis for which drug-eluting stent 3.0 x 22 was deployed successfully with excellent results. The patient was then redirected to the right anterior tibial and after wiring the vessel CSI atherectomy was performed 60,000 and 90,000 rpm followed by 3.0 x 150 mm balloon inflation to nominal pressure with excellent final angiographic results. CONCLUSION: Right posterior tibial HELP DESK TEAM LEADER and drug-eluting balloon HELP DESK TEAM LEADER, right posterior tibial CSI atherectomy and drug-eluting stent and right anterior tibial CSI atherectomy and HELP DESK TEAM LEADER. Recommend aspirin and Plavix, bedrest, staged intervention to the left lower extremity. MD MahoneyV/MODL /[id number]
--- NOTE | 2020-05-13 13:43 | Progress Note ---
DATE: 05/13/2020 Cardiology Progress note SUBJECTIVE: No complaints. OBJECTIVE: VITAL SIGNS: Telemetry, in atrial fibrillation with controlled ventricular response. Temperature 98 degrees, heart rate 63, blood pressure 128/79, respiratory rate 20, and O2 saturation 98%. GENERAL: In no acute distress, alert. NECK: No JVD. CHEST: Clear to auscultation. CARDIOVASCULAR: Irregularly irregular rate and rhythm. Normal S1, S2. No S3 or S4. ABDOMEN: Soft. Bowel sounds positive. EXTREMITIES: No edema. Right foot with dressings covering wound. CARDIOVASCULAR MEDICATIONS: Reviewed. Atorvastatin 20 mg at bedtime, aspirin 81 mg daily, clopidogrel 75 mg daily, losartan 100 mg daily, and nifedipine 30 mg b.i.d. STUDIES: Reviewed. Creatinine 0.7. White blood cell 7, hemoglobin 14, and platelets 152. INR 1. AST 26, ALT 37, and alkaline phosphatase 120. ASSESSMENT AND PLAN: 1. A 75-year-old man presents with right foot wound critical limb ischemia, severe peripheral arterial disease, now status post revascularization of the right popliteal artery with drug-eluting balloon CARDROOM PLASTIC CARD GRADER and right anterior tibial and right posterior tibial artery with CSI atherectomy and CARDROOM PLASTIC CARD GRADER and right posterior tibial drug-eluting stent with excellent angiographic results and residual left rqcqs-igz-eosk vessel disease for which stage revascularization is advised. 2. Atrial fibrillation, the following three days. Resume Eliquis, on home oral anticoagulation in addition to clopidogrel 75 mg daily. Continue statin and antihypertensive medicines. Bryon Canela MD AFAlysa/MODL /[id number]
[2020-05-13] MEDS: ATORVASTATIN 40 MG TAB PO SCH (22:30)
[2020-05-14] VITALS (9 sets, daily range): BP systolic 128–158; BP diastolic 71–88
[2020-05-14] MEDS: PIPER-TAZ 3.375 GM 50 ML IV SCH ×4 (00:17→16:59)
--- NOTE | 2020-05-14 07:00 | NUR ---
Patient resting comfortably. No acute distress noted. Walking rounds done. Bedside report given to oncoming nurse.
[2020-05-14] MEDS: SODIUM CHLORIDE 0.9% 1000ML 1,000 ML IV SCH ×3 (07:08→21:26)
[2020-05-14] MEDS: INSULIN LISPRO 100 UNIT/1 ML 3ML VIAL SQ SCH ×7 (07:30→21:00)
[2020-05-14] MEDS: INSULIN GLARGINE 100 UNITS/ML VIAL SQ SCH (09:00)
[2020-05-14] MEDS: ASPIRIN 81 MG CHEW TAB PO SCH (09:46)
[2020-05-14] MEDS: LOSARTAN POTASSIUM 100 MG TAB PO SCH (09:47)
[2020-05-14] MEDS: CLOPIDOGREL BISULFATE 75 MG TAB PO SCH (09:47)
[2020-05-14] MEDS: NIFEDIPINE CR 30 MG TAB PO SCH ×2 (09:47→21:26)
--- NOTE | 2020-05-14 10:48 | Progress Note ---
DATE: 05/14/2020 SUBJECTIVE: The patient at bedside, doing significantly better. Decreased discomfort to both lower extremities. Denies any history of fever, chills, nausea, or vomiting. OBJECTIVE: VITAL SIGNS: Afebrile, pulse rate 54, respirations 18, blood pressure 128/71, and O2 saturation 94%. EXTREMITIES: Ulceration in the distal aspect of right great toe, getting a little bit better and the subcutaneous tissue swollen when compared to contralateral side. Pedal pulses palpable with skin temperature warm to touch. LABORATORY DATA: Noted as white blood cell count of 7.08. ASSESSMENT: Grade 2 ulceration with osteo right great toe with neuropathy. PLAN: We will continue local wound care. Continue IV antibiotics such as Zosyn. We will continue to monitor and follow, possible debridement of ulcer will be done tomorrow. JUAN DIEGO Argueta/RU /[id number]
--- NOTE | 2020-05-14 11:25 | NUR ---
Spoke to pt and daughter Karla Rogers [phone] regarding IV antibiotics. Krala states that she would be able to help with medication administration. Choice given for [facility]. Signed choice letter placed in front of chart. Copy to pt. Referral faxed to [facility] at [phone] / Kenia Mclaughlin with [facility] was notified of referral. Verified that she received referral. Pt currently pending PICC line placement.
--- NOTE | 2020-05-14 11:29 | NUR ---
consent signed for picc line , pt daughter cliff aware of picc line
--- NOTE | 2020-05-14 12:12 | Diagnostic Imaging Report ---
EXAMINATION: CHEST XRAY LINE PLACEMENT INDICATION: Line insertion COMPARISON: Chest radiograph 11/30/2019 FINDINGS: LINES/TUBES:Right PICC line terminates just beyond the superior cavoatrial junction. LUNGS:The lungs are moderately inflated. No focal consolidation or pulmonary edema. PLEURA:No pleural effusion or pneumothorax. MEDIASTINUM:The cardiomediastinal silhouette appears normal in size and shape. BONES/SOFT TISSUES:No acute osseous injury. ABDOMEN:No free air under the diaphragm. IMPRESSION: Right PICC line terminates just beyond the superior cavoatrial junction. No focal pneumonia or pulmonary edema. Signed by: Kimberly Andersen MD on 05/14/2020 12:08 PM
--- NOTE | 2020-05-14 12:56 | NUR ---
PICC line placement and labs faxed to [facility]
--- NOTE | 2020-05-14 13:25 | Diagnostic Imaging Report ---
EXAMINATION: CHEST SINGLE (PORTABLE) INDICATION: Line placement COMPARISON: Chest radiograph of earlier the same day FINDINGS: LINES/TUBES:Right PICC line has been retracted and now terminates in the superior vena cava. LUNGS:The lungs are well-inflated. No focal consolidation or pulmonary edema. PLEURA:No pleural effusion or pneumothorax. MEDIASTINUM:The cardiomediastinal silhouette appears normal in size and shape. BONES/SOFT TISSUES:No acute osseous injury. ABDOMEN:No free air under the diaphragm. IMPRESSION: Right PICC line now terminates in the superior vena cava. Signed by: Kimberly Andersen MD on 05/14/2020 1:22 PM
[2020-05-14] MEDS: VANCOMYCIN HCL 1.5 GM in SODIUM CHLORIDE 0.9% 250ML 300 ML IV SCH (14:29)
--- NOTE | 2020-05-14 19:20 | NUR ---
report given to oncoming nurse walking rounds complete.
--- NOTE | 2020-05-14 19:26 | Progress Note ---
DATE: Cardiology Progress Note SUBJECTIVE: No complaints. OBJECTIVE: VITAL SIGNS: Temperature 98.9, heart rate 56, blood pressure 146/76, respiratory rate 20, O2 saturation 98%, BMI is 32.9. GENERAL: In no acute distress, alert. NECK: No JVD. CHEST: Clear to auscultation. CARDIOVASCULAR: Irregular rate and rhythm. Normal S1, S2. ABDOMEN: Soft. Bowel sounds positive. EXTREMITIES: Trace edema, right foot wound. MEDICATIONS: Cardiovascular medications reviewed. Nifedipine, aspirin, atorvastatin, clopidogrel. LABORATORY DATA: Studies reviewed. Creatinine 0.7. White blood cells 7, hemoglobin 14, platelets 152. ASSESSMENT AND PLAN: A 75-year-old man with atrial fibrillation, diabetes, hypertension, dyslipidemia, peripheral arterial disease, status post revascularization of right lower extremity, popliteal artery and posterior tibial arteries with excellent angiographic results with residual left lower extremity [id number] level peripheral artery disease. Recommend after 72 hours postprocedure, resume Eliquis and continue clopidogrel and discontinue aspirin. Continue rest of cardiovascular medications otherwise and proceed with outpatient followup in 2-4 weeks post discharge. MD J CARLOS Hollis/RU /[id number]
[2020-05-14] MEDS: ATORVASTATIN 40 MG TAB PO SCH (21:25)
[2020-05-15] VITALS (8 sets, daily range): BP systolic 135–160; BP diastolic 74–90
[2020-05-15] MEDS: PIPER-TAZ 3.375 GM 50 ML IV SCH ×5 (00:34→17:31)
--- NOTE | 2020-05-15 07:00 | NUR ---
Waking rounds done. Bed-side report given to oncoming nurse. No acute distress noted. Call light within reach.
[2020-05-15 07:02] LABS: BASOPHILS % 0.2 % (0.0-1.0); EOSINOPHILS # (AUTO) 0.1 (0.0-0.4); HEMATOCRIT 40.3 % (38.2-49.6); HEMOGLOBIN 12.9 g/dL (14.0-18.0); LYMPHOCYTES # (AUTO) 1.6 (1.0-3.2); LYMPHOCYTES % 19.7 % (18.0-39.1); MEAN CORPUSCULAR HEMOGLOBIN 29.1 pg (28-32); MEAN CORPUSCULAR VOLUME 90.8 fL (81-99); MONOCYTES # (AUTO) 0.7 (0.2-0.8); MONOCYTES % 8.3 % (4.4-11.3); NEUTROPHILS # (AUTO) 5.8 (2.1-6.9); NEUTROPHILS % 70.4 % (38.7-80.0); PLATELET COUNT 120 x10e3/uL (140-360); RED BLOOD COUNT 4.44 x10e6/uL (4.3-5.7); RED CELL DISTRIBUTION WIDTH 13.8 % (11.7-14.4)
[2020-05-15] MEDS: INSULIN LISPRO 100 UNIT/1 ML 3ML VIAL SQ SCH ×7 (07:30→21:00)
[2020-05-15 07:32] LABS: ANION GAP 8.6 mmol/L (8-16); BLOOD UREA NITROGEN 14 mg/dL (7-26); BUN/CREATININE RATIO 18 (6-25); CALCIUM 8.6 mg/dL (8.4-10.2); CARBON DIOXIDE 26 mmol/L (22-29); CHLORIDE 108 mmol/L (98-107); CREATININE, SERUM 0.78 mg/dL (0.72-1.25); EST GLOMERULAR FILTRATION RATE > 60 ML/MIN (60-); GLUCOSE 101 mg/dL (74-118); POTASSIUM 3.6 mmol/L (3.5-5.1); SODIUM 139 mmol/L (136-145)
[2020-05-15] MEDS: SODIUM CHLORIDE 0.9% 1000ML 1,000 ML IV SCH ×3 (08:16→22:27)
[2020-05-15] MEDS: CLOPIDOGREL BISULFATE 75 MG TAB PO SCH (08:20)
[2020-05-15] MEDS: ASPIRIN 81 MG CHEW TAB PO SCH (08:20)
[2020-05-15] MEDS: NIFEDIPINE CR 30 MG TAB PO SCH ×2 (08:20→21:39)
[2020-05-15] MEDS: LOSARTAN POTASSIUM 100 MG TAB PO SCH (08:20)
[2020-05-15 08:25] LABS: PLATELET ESTIMATE SLIGHTLY DECREASED; PLATELET MORPHOLOGY COMMENT RARE EDTA CLUMPING; RBC MORPHOLOGY COMMENT NORMAL
[2020-05-15] MEDS: MUPIROCIN 2% OINT 22 GM TUBE TOP SCH (09:00)
[2020-05-15] MEDS: INSULIN GLARGINE 100 UNITS/ML VIAL SQ SCH (09:00)
--- NOTE | 2020-05-15 09:17 | Consultation ---
DATE OF CONSULTATION: 05/15/2020 SUBJECTIVE: The patient is at bedside, doing better. He is denying history of fever, chills, nausea, or vomiting. OBJECTIVE: VITAL SIGNS: Afebrile, pulse rate 80, respirations 20, blood pressure 160/90, and O2 saturation 96%. LABORATORY DATA: Labs noted, has a white blood cell count dropping to 8.23, has an ulceration distal aspect right great toe measuring 1-1.5 cm in diameter. Some necrosis noted down to subcutaneous tissue with moderate amount of swelling compared to contralateral side. X-rays were negative for any type of gas in the tissue. Pedal pulses are palpable. Skin temperature warm to touch on this date. ASSESSMENT: Grade 2 ulcer of possible ostial right great toe with diabetic neuropathy. PLAN: Sharp excisional debridement was carried down to subcutaneous tissue via sharp debridement utilizing a sterile 10 blade until good viable bleeding tissue was achieved. Sterile dressing was applied with Bactroban. The patient is currently on IV vancomycin. We will continue to treat conservatively for now. We will continue to follow as long as in the hospital. His discharge history is to follow up in the office. The patient on IV Vancomycin and Zosyn. JUAN DIEGO Argueta/RU /[id number]
--- NOTE | 2020-05-15 10:42 | NUR ---
Spoke with Dr. Zapien. Stated that it's okay to discharge patient from his standpoint. Continue IV antibiotic per ID's order. Bactroban ointment to right great toe, cover with 4x4 dressing and wrap with kerlix. Follow-up next week in [place] office.
--- NOTE | 2020-05-15 12:19 | Progress Note ---
DATE: 05/15/2020 Cardiology Progress Note SUBJECTIVE: Denies any chest pain or shortness of breath. No other complaints. OBJECTIVE: VITAL SIGNS: Temperature 98.3, heart rate 80, blood pressure 160/90, respiratory rate 20, O2 saturation 96%. BMI is 32.9. GENERAL: In no acute distress. Alert. NECK: No JVD. CHEST: Clear to auscultation. CARDIOVASCULAR: Regular rate and rhythm. Normal S1, S2. No S3 or S4. ABDOMEN: Soft. Bowel sounds positive. EXTREMITIES: Trace edema. Right forefoot is covered with dressings. MEDICATIONS: Cardiovascular medications reviewed. Nifedipine 30 mg every 12 hours, losartan 100 mg daily, aspirin 81 mg daily, atorvastatin 40 mg at bedtime, clopidogrel 75 mg daily. LABORATORY DATA: Studies reviewed. Creatinine 0.7, glucose 101. White blood cells 8.2, hemoglobin 12.9, platelets 120. INR 1. ASSESSMENT AND PLAN: A 75-year-old man with atrial fibrillation, hypertension, dyslipidemia, diabetes, peripheral arterial disease, status post revascularization, right popliteal anterior tibial posterior tibial arteries. Recommend continue current cardiovascular medications with the following changes starting tomorrow, can discontinue aspirin, continue clopidogrel, and initiate Eliquis 2.5 mg every 12 hours for thromboembolic risk prevention. Continue rest of cardiovascular medications. MD J CARLOS Hollis/RU /[id number]
--- NOTE | 2020-05-15 13:05 | NUR ---
Reached out to Kenia with [facility] to get update on status of IV abx arrangement. States she's trying to find out what time teaching is being arranged. ALIDA also called and spoke with pt's daughter Karla who states she can help with wound care.
--- NOTE | 2020-05-15 14:00 | NUR ---
Pt's daughter Crystal will meet Elke with [facility] for teaching.
[2020-05-15] MEDS: VANCOMYCIN HCL 1.5 GM in SODIUM CHLORIDE 0.9% 250ML 300 ML IV SCH (14:44)
--- NOTE | 2020-05-15 16:40 | NUR ---
Spoke with Elke with [facility]. States daughter Crystal can't help with administering meds. Daughter Karla is feeling sick currently so unable to come for teach. Son Gennaro is free tomorrow and is able to meet with Elke at 9am tomorrow. KEVIN Ordaz informed and approved for Gennaro to come for teach.
--- NOTE | 2020-05-15 19:24 | NUR ---
Patient received lying in bed. AAO x 3. Patient had no complaints of pain. Respirations even and non-labored. Safety measures in place. IVF infusing at 125 cc/hr. Dressing to right great toe CDI. Patient instructed to call for assistance when needed. Call light within reach.
[2020-05-15] MEDS: ATORVASTATIN 40 MG TAB PO SCH (21:38)
[2020-05-16] VITALS: BP 150/79
[2020-05-16 04:00] VITALS: BP 147/82
[2020-05-16] MEDS: PIPER-TAZ 3.375 GM 50 ML IV SCH ×4 (04:52→11:43)
[2020-05-16] MEDS: SODIUM CHLORIDE 0.9% 1000ML 1,000 ML IV SCH (04:52)
--- NOTE | 2020-05-16 07:00 | NUR ---
Walking rounds done. Patient resting comfortably. Shift report given to oncoming nurse.
[2020-05-16] MEDS: INSULIN LISPRO 100 UNIT/1 ML 3ML VIAL SQ SCH ×4 (07:30→11:43)
[2020-05-16 07:49] VITALS: BP 138/83
[2020-05-16] MEDS: INSULIN GLARGINE 100 UNITS/ML VIAL SQ SCH (09:00)
[2020-05-16] MEDS ORDERED: MUPIROCIN 2% OINT 22 GM TUBE TOP SCH (09:00)
--- NOTE | 2020-05-16 09:22 | Progress Note ---
DATE: SUBJECTIVE: The patient is seen and evaluated. Available labs and notes reviewed. REVIEW OF SYSTEMS: No nausea, vomiting, fever, chills, chest pain, shortness of breath. OBJECTIVE: VITAL SIGNS: Temperature 98.6, pulse 57, respirations 18, and blood pressure 138/83. GENERAL: Alert and oriented, in no acute distress. CV: S1-S2. CHEST: Equal expansion. Clear to auscultation. No acute distress. ABDOMEN: Soft, nontender and no distension. HEENT: Moist, no pallor, no JVD. EXTREMITIES: Right foot first toe wounds are local care. MEDICATIONS: Medication list reviewed. LABORATORY STUDIES: White count of 8.23, platelets 120. Sodium 139, creatinine is 0.78. MICROBIOLOGY: Blood culture negative. RADIOLOGY STUDIES: No new radiology studies available. ASSESSMENT AND PLAN: 1. Osteomyelitis of right first toe. 2. Cellulitis of foot. 3. Wound of right first toe. 4. Diabetes. 5. Hypertension. 6. The patient is status post PICC line in right upper extremity. Antibiotics being set up for home, to be given vancomycin and cefepime. We changed Zosyn here and given cefepime and pending training for home IV antibiotics. Please refer to chart for more information. MD SARAH BETH Hernandez/RU /[id number]
[2020-05-16 09:40] VITALS: BP 138/83
[2020-05-16] MEDS: NIFEDIPINE CR 30 MG TAB PO SCH (09:42)
[2020-05-16] MEDS: MUPIROCIN 2% OINT 22 GM TUBE TOP SCH (09:42)
[2020-05-16] MEDS: LOSARTAN POTASSIUM 100 MG TAB PO SCH (09:42)
[2020-05-16] MEDS: CLOPIDOGREL BISULFATE 75 MG TAB PO SCH (09:42)
--- NOTE | 2020-05-16 09:47 | Progress Note ---
DATE: 05/16/2020 SUBJECTIVE: The patient is seen at bedside, doing much better. He is denying history of fever, chills, nausea, or vomiting. OBJECTIVE: VITAL SIGNS: Afebrile, pulse rate 57, respirations 18, blood pressure 138/83, and O2 saturation 97%. EXTREMITIES: Ulceration to the right great toe closing. Still some edema noted to the right great toe when compared to the left. Pedal pulses palpable. Skin temperature warm to touch. Subungual infection noted to the right great toe. LABORATORY DATA: Show white blood cell count peaking from 11.2 to 8.2. ASSESSMENT: Grade 2 ulcer healing, possible osteo, diabetic neuropathy, doing very well, status post angioplasties. PLAN: We will continue local wound care. Continue IV antibiotics. Upon discharge, the patient is to follow up in the office. JUAN DIEGO Argueta/RU /[id number]
[2020-05-16] MEDS ORDERED: APIXAB 2.5 MG TABLET PO SCH (10:30)
--- NOTE | 2020-05-16 10:30 | NUR ---
Teaching with pt's son Gennaro done. [facility] will provide nursing and medications will be delivered today. TUCKER Meek was notified and will get dc order.
[2020-05-16 11:38] VITALS: BP 154/81
[2020-05-16] MEDS: VANCOMYCIN HCL 1.5 GM in SODIUM CHLORIDE 0.9% 250ML 300 ML IV SCH (11:40)
--- NOTE | 2020-05-16 14:42 | NUR ---
Discharge education given to the patient and family member at bedside. Verbalized understanding. Patient's son educated about the wound dressing to right great toe, verbalized understanding. Wound care supplies provided. Transported via wheelchair to private vehicle with all personal belongings taken.
--- NOTE | 2020-05-16 20:38 | Progress Note ---
DATE: Cardiology Progress Note SUBJECTIVE: No complaints today. Discussed at length with the patient and son, findings and recommendations. OBJECTIVE: VITAL SIGNS: Temperature 98.6, heart rate 57, blood pressure 138/83, respiratory rate 18, and O2 saturation 97%. GENERAL: In no acute distress. Alert. NECK: No JVD. CHEST: Clear to auscultation. CARDIOVASCULAR: Regular rate and rhythm. Normal S1 and S2. No S3 or S4. ABDOMEN: Soft bowel sounds. EXTREMITIES: Trace edema. Right 1st toe wound healing. CARDIOVASCULAR MEDICATIONS: Reviewed. Nifedipine, atorvastatin, losartan, clopidogrel, and Eliquis. STUDIES: Reviewed. Creatinine 0.7. Hemoglobin 12.9 and platelets 120. ASSESSMENT AND PLAN: A 75-year-old man with paroxysmal atrial fibrillation, peripheral arterial disease, status post revascularization, hypertension, dyslipidemia, and diabetes. RECOMMEND: Continue current cardiovascular medications. Outpatient followup in 4 to 6 weeks. Consider outpatient revascularization of left lower extremity at a later date. Bryon Canela MD AFAlysa/MODL /[id number]
== END 2020-05-16 13:42 | disposition home or self-care (01) | DRG 623 ==
LOC: ER 14:40 → ERHOLD 16:12 → MED/SURG2 16:29
PROVIDERS: ADMIT Internal Medicine; ATTEND Internal Medicine
PROC: 047M3Z1 Dilation of Right Popliteal Artery using Drug-Coated Balloon, Percutaneous Approach (ICD-10-PCS; 2020-05-13)
PROC: 047R341 Dilation of Right Posterior Tibial Artery with Drug-eluting Intraluminal Device, using Drug-Coated Balloon, Percutaneous Approach (ICD-10-PCS; 2020-05-13)
PROC: 047P3Z1 Dilation of Right Anterior Tibial Artery using Drug-Coated Balloon, Percutaneous Approach (ICD-10-PCS; 2020-05-13)
PROC: 04CR3ZZ Extirpation of Matter from Right Posterior Tibial Artery, Percutaneous Approach (ICD-10-PCS; 2020-05-13)
PROC: 04CP3ZZ Extirpation of Matter from Right Anterior Tibial Artery, Percutaneous Approach (ICD-10-PCS; 2020-05-13)
PROC: B41D1ZZ Fluoroscopy of Aorta and Bilateral Lower Extremity Arteries using Low Osmolar Contrast (ICD-10-PCS; 2020-05-13)
PROC: 02HV33Z Insertion of Infusion Device into Superior Vena Cava, Percutaneous Approach (ICD-10-PCS; 2020-05-14)
PROC: B548ZZA Ultrasonography of Superior Vena Cava, Guidance (ICD-10-PCS; 2020-05-14)
PROC: 0JBQ0ZZ Excision of Right Foot Subcutaneous Tissue and Fascia, Open Approach (ICD-10-PCS; principal; 2020-05-15)
DX: E11.69 Type 2 diabetes mellitus with other specified complication (principal); M86.171 Other acute osteomyelitis, right ankle and foot; L02.31 Cutaneous abscess of buttock; E11.42 Type 2 diabetes mellitus with diabetic polyneuropathy; E11.22 Type 2 diabetes mellitus with diabetic chronic kidney disease; I12.9 Hypertensive chronic kidney disease with stage 1 through stage 4 chronic kidney disease, or unspecified chronic kidney disease; N18.9 Chronic kidney disease, unspecified; I48.0 Paroxysmal atrial fibrillation; E78.5 Hyperlipidemia, unspecified; Z87.891 Personal history of nicotine dependence; Z79.01 Long term (current) use of anticoagulants; Z86.718 Personal history of other venous thrombosis and embolism; E11.621 Type 2 diabetes mellitus with foot ulcer; L97.511 Non-pressure chronic ulcer of other part of right foot limited to breakdown of skin; Z79.4 Long term (current) use of insulin
CPT/HCPCS: 36247; 36415; 36569; 37225; 37231; 71045; 75630; 80048; 80053; 80202; 82948; 83036; 83605; 84443; 85025; 85610; 85730; 87040; 93925; 99152; 99153; 99285; C1724; C1725; C1760; C1766; C1769; C1874; C1887; J0692; J1644; J1650; J1815; J1817; J2001; J2250; J2543; J3010; J3370; J7030; J7050; Q9967; U0002